=== PATIENT | female | born 1955 | race Caucasian/White ===

== ENCOUNTER 2021-01-10 02:26 | Emergency (ER) | payer MEDICARE, OTHER, SELFPAY ==
[2021-01-10 02:18] VITALS: BP 133/77; PULSE 97; RESP 18; TEMP 37.2; O2SAT 98; BMI 42.0
[2021-01-10 03:16] LABS: Coronavirus 19, PCR Not Detected (NotDetected); Influenza A, PCR Not Detected (NotDetected); Influenza B, PCR Not Detected (NotDetected)
--- NOTE | 2021-01-10 03:16 | XR_ITS ---
PROCEDURE INFORMATION: Exam: XR Pelvis Exam date and time: 01/10/2021 3:16 AM Age: 65 years old Clinical indication: Pelvic pain; Additional info: Fall TECHNIQUE: Imaging protocol: XR pelvis. Views: 1 or 2 view. COMPARISON: CR PELAP PELVIS AP ONLY 01/05/2015 3:35 PM FINDINGS: Bones/joints: Osteopenia, limiting evaluation of the osseous structures. There is a questionable nondisplaced avulsion fracture of the left greater trochanter, with the differential to include artifact due to enthesopathy and overlying skin folds. No dislocation. Minimal degenerative spurring of the bilateral hips. Partially visualized lower lumbar degenerative changes. Soft tissues: Surgical clips in the right inguinal region. Question left hip soft tissue swelling laterally. Vasculature: Atherosclerotic calcifications. Left iliac vascular stents. IMPRESSION: Possible acute nondisplaced avulsion fracture of the left greater trochanter versus artifact. Further evaluation with CT recommended.
[2021-01-10 03:21] LABS: Basophils % 0.2 % (0.1-2.0); Eosinophils % 0.6 % (0.1-12.0); Hematocrit 34.3 % (37.0-47.0); Hemoglobin 9.9 g/dL (12.2-16.2); Lymphocytes # 0.7 K/mm3 (0.7-4.5); Lymphocytes % 9.7 % (10-50); Mean Corpuscular HGB Conc 28.9 g/dL (31.8-35.4); Mean Corpuscular Hemoglobin 24.3 pg (27.0-31.2); Mean Corpuscular Volume 84.1 fl (81-99); Mean Platelet Volume 8.1 fl (7.4-10.4); Monocytes # 0.2 K/mm3 (0.1-1.0); Monocytes % 3.4 % (1.7-9.3); Platelet Count 367 K/mm3 (142-424); Red Blood Count 4.07 M/mm3 (4.20-5.40); Red Cell Distribution Width 16.7 % (11.5-17.5)
[2021-01-10 03:28] LABS: MANUAL DIFFERENTIAL MANUAL DIFFERENTIAL (MANUAL DIFF)
[2021-01-10 03:29] LABS: Alanine Aminotransferase 15 U/L (12-78); Albumin Level 3.3 g/dl (3.5-5.0); Albumin/Globulin Ratio 0.9 (1.1-1.8); Alkaline Phosphatase 157 U/L (38-126); Aspartate Amino Transferase 33 U/L (14-36); Bilirubin,Total 0.4 mg/dl (0.2-1.3); Blood Urea Nitrogen 11 mg/dl (7-17); Calcium 9.8 mg/dl (8.4-10.2); Chloride 87 mmol/L (98-107); Creatinine Clearance Estimated 44 mL/min (50-200); Estimated Glomerular Filt Rate 84 ml/min (>60); GFR (African American) 102 ML/MIN (>60); Globulin 3.7 g/dL (1.3-3.2); Glucose 386 mg/dl (74-100); Lactic Acid 1.1 mmol/L (0.7-2.1); Potassium 4.2 mmoL/L (3.5-5.1); Sodium 132 mmol/L (136-145)
[2021-01-10 03:34] LABS: C-Reactive Protein 206.2 mg/L (0-4)
[2021-01-10 03:37] LABS: Anion Gap 12.2 mEq/L (5-15); Carbon Dioxide 37 mmol/L (22.0-30.0)
[2021-01-10 03:48] LABS: Procalcitonin 0.138 ng/mL (0.0-2.0)
--- NOTE | 2021-01-10 03:55 | HMH.EDSKAF ---
ED Disposition Clinical Impression: Gangrene of left foot Disposition: Home, Self-Care Condition on Discharge: Fair Instructions: DI for Foot Pain Additional Instructions: please call hospice for follow up Referrals: Provider,Referral, [Primary Care Provider] - - Critical Care Critical Care Time: No Attestation: On 01/10/21, the high probability of a clinically significant, sudden or life threatening deterioration of the following system(s) required my full and direct attention, intervention and personal management. The time I documented below is in addition to time spent performing reported procedures but includes the following listed in this critical care notation. Medical Decision Making - Medical Records Medical records reviewed: Yes: I reviewed the patient's medical records. - Roshan Inquiry Pt receiving controlled substance: No Vital Signs: 01/10/21 02:18 Temperature 98.9 F Temperature Source Oral Pulse Rate [Apical] 97 H Respiratory Rate 18 Blood Pressure [Right Arm] 133/77 Blood Pressure Mean [Right Arm] 95 Blood Pressure Source [Right Arm] Automatic Cuff Blood Pressure Position [Right Arm] Sitting 02 Sat by Pulse Oximetry 98 Oxygen Delivery Method Nasal Cannula Oxygen Flow Rate (LPM) 3 - Lab Data Lab results reviewed: Yes: I reviewed the patient's lab results. Lab Results 01/10/21 02:35: WBC 7.0, RBC 4.07 L, Hgb 9.9 L, Hct 34.3 L, MCV 84.1, MCH 24.3 L, MCHC 28.9 L, RDW 16.7, Plt Count 367, MPV 8.1, Neut % (Auto) 86.0 H, Lymph % (Auto) 9.7 L, [place] % (Auto) 3.4, Eos % (Auto) 0.6, Baso % (Auto) 0.2, Neut # (Auto) 6.0, Lymph # (Auto) 0.7, [place] # (Auto) 0.2, Eos # (Auto) 0.0, Baso # (Auto) 0.0 01/10/21 02:35: Sodium 132 L, Potassium 4.2, Chloride 87 L, Carbon Dioxide 37 H, Anion Gap 12.2, BUN 11, Creatinine 0.70, Estimated Creat Clear 44, Estimated GFR 84, Est GFR ( Amer) 102, Glucose 386 H, Calcium 9.8, Total Bilirubin 0.4, AST 33, ALT 15, Alkaline Phosphatase 157 H, C-Reactive Protein 206.2 H, Total Protein 7.0, Albumin 3.3 L, Globulin 3.7 H, Albumin/Globulin Ratio 0.9 L, Procalcitonin 0.138 01/10/21 02:35: SARS-CoV-2 (PCR) Not detected, Influenza A Untype (PCR) Not detected, Influenza Type B (PCR) Not detected 01/10/21 02:35: Lactate 1.1 Result diagrams: 01/10/21 02:35 01/10/21 02:35 Orders (Tests/Meds): ORDERS Category Date Time Status Pelvis XR 1-2 views [XR pelvis 1-2V] Stat Exams 01/10/21 03:16 Taken Complete Blood Count Auto Diff Stat Lab 01/10/21 02:35 Results Erythrocyte Sedimentation Rate Stat Lab 01/10/21 02:35 Results Blood Culture Stat Micro 01/10/21 02:35 Received - Radiology Data #1 Image(s): Pelvis Image Reviewed: Yes I have reviewed radiologist's interpretation Preliminary Findings: No Fracture Seen Medical Decision Narrative: chronic changes lt foot and hospice pt will redress foot and resume hospice care Skin/Abscess/FB HPI - General Chief complaint: Wound/Laceration Stated complaint: laceration on left foot Time Seen by Provider: 01/10/21 02:30 Mode of Arrival: EMS Source of Information: Patient, EMS, Medical Record Limitations: Physical Limitations Description of Symptoms (Recalled from ER Triage Doc. by RN): Patient arrived via ems with c/o left ankle laceration, upon assessment it was ascertained that the patient has had ankle surgery with associated osteomylitis. Wound has not healed since her last surgery two months ago. Patient states that last night she was ambulating from her chair to the bathroom and she bumped her foot on her chair and it began to bleed. States her daughter was unable to get it to stop bleeding so they called ems. - History of Present Illness HPI narrative: hx of chronically infected lt foot and has had surg in nov at - with acute fall tonight with bleeding and has lung cancer and on pain meds and hospice care as pt wishes only comfort care MD complaint: other (open wd lt foot ) Onset (ago): h
[2021-01-10 04:03] LABS: Erythrocyte Sedimentation Rate 102 mm/hr (0-30)
[2021-01-10 04:21] LABS: Hypochromasia 1+; Lymphocytes % 10 % (10-50); Monocytes % 2 % (2-9); Neutrophils % 88 % (42-76); Platelet Estimate Normal; Stomatocytes 1+; Total Cells Counted 100
[2021-01-10 05:44] VITALS: BP 130/74; PULSE 88; RESP 16; TEMP 36.8; O2SAT 99
== END 2021-01-10 05:51 | disposition home or self-care (01) ==
PROVIDERS: Emergency Provider Emergency Medicine
DX: I96 Gangrene, not elsewhere classified (principal); M86.172 Other acute osteomyelitis, left ankle and foot; E11.621 Type 2 diabetes mellitus with foot ulcer; C34.90 Malignant neoplasm of unspecified part of unspecified bronchus or lung; Z20.822 Contact with and (suspected) exposure to COVID-19
CPT/HCPCS: 72170; 80053; 83605; 84145; 85007; 85025; 85651; 86140; 87040; 96375; 99283; C9803; J2405; U0003; U0005

== ENCOUNTER 2021-01-23 20:19 | Inpatient (IN) | payer OTHER, SELFPAY ==
[2021-01-23 20:19] VITALS: BP 124/58; PULSE 79; RESP 21; TEMP 36.4; O2SAT 98; BMI 33.6
--- NOTE | 2021-01-23 20:35 | XR_ITS ---
PROCEDURE INFORMATION: Exam: XR Pelvis Exam date and time: 01/23/2021 8:35 PM Age: 65 years old Clinical indication: Pelvic pain; Additional info: Fall TECHNIQUE: Imaging protocol: XR pelvis. Views: 1 or 2 view. COMPARISON: CR XR PELVIS 1-2V 01/10/2021 3:32 AM FINDINGS: Bones/joints: Degenerative changes of the lumbosacral spine and hips. No acute fracture or dislocation. Soft tissues: Unremarkable. Vasculature: Vascular calcifications. Left iliac stent. IMPRESSION: Chronic changes without acute process.
--- NOTE | 2021-01-23 20:35 | XR_ITS ---
PROCEDURE INFORMATION: Exam: XR Chest Exam date and time: 01/23/2021 8:35 PM Age: 65 years old Clinical indication: Pain; Other: Fall TECHNIQUE: Imaging protocol: XR of the chest. Views: 4 or more views. COMPARISON: [facility] CT CERVICAL SPINE W/O CONT 12/05/2014 8:40 AM FINDINGS: Lungs: Patchy opacity within the medial right upper lobe. Pleural spaces: Unremarkable. No pleural effusion. No pneumothorax. Heart/Mediastinum: Unremarkable. No cardiomegaly. Vasculature: Calcification of the aortic arch. Bones/joints: Status post ACDF. Organs: Post cholecystectomy change. IMPRESSION: Patchy opacity within the medial right upper lobe which is nonspecific but potentially secondary to atelectasis or pneumonia. Follow-up to radiographic clearance is recommended.
--- NOTE | 2021-01-23 21:10 | HMH.EDFALL ---
ED Disposition Clinical Impression: Gangrene of left foot Diabetes Qualifiers: Diabetes mellitus type: type 1 Diabetes mellitus complication status: with other specified complication Qualified Code(s): E10.69 - Type 1 diabetes mellitus with other specified complication Disposition: Admitted As Inpatient Condition on Discharge: Serious Referrals: Provider,Referral, [Primary Care Provider] - - Critical Care Critical Care Time: No Attestation: On 01/23/21, the high probability of a clinically significant, sudden or life threatening deterioration of the following system(s) required my full and direct attention, intervention and personal management. The time I documented below is in addition to time spent performing reported procedures but includes the following listed in this critical care notation. Medical Decision Making - Medical Records Medical records reviewed: Yes: I reviewed the patient's medical records. - Roshan Inquiry Pt receiving controlled substance: No Vital Signs: 01/23/21 20:19 01/23/21 21:31 01/23/21 22:01 Temperature 97.6 F Temperature Source Oral Pulse Rate 82 77 Pulse Rate [Right Radial] 79 Respiratory Rate 21 Blood Pressure 114/53 L 129/42 L Blood Pressure [Right Arm] 124/58 L Blood Pressure Mean 73 Blood Pressure Mean [Right Arm] 80 Blood Pressure Source [Right Arm] Automatic Cuff Blood Pressure Position [Right Arm] Sitting 02 Sat by Pulse Oximetry 98 98 99 Oxygen Delivery Method Nasal Cannula Nasal Cannula Nasal Cannula Oxygen Flow Rate (LPM) 3 3 3 01/23/21 22:35 Temperature Temperature Source Pulse Rate 75 Pulse Rate [Right Radial] Respiratory Rate Blood Pressure 105/58 L Blood Pressure [Right Arm] Blood Pressure Mean Blood Pressure Mean [Right Arm] Blood Pressure Source [Right Arm] Blood Pressure Position [Right Arm] 02 Sat by Pulse Oximetry 98 Oxygen Delivery Method Nasal Cannula Oxygen Flow Rate (LPM) 3 - Lab Data Lab results reviewed: Yes: I reviewed the patient's lab results. Lab Results 01/23/21 22:12: WBC 8.9, RBC 4.20, Hgb 9.9 L, Hct 34.4 L, MCV 82.1, MCH 23.6 L, MCHC 28.7 L, RDW 16.6, Plt Count 452 H, MPV 7.8, Neut % (Auto) 88.6 H, Lymph % (Auto) 8.9 L, [place] % (Auto) 2.0, Eos % (Auto) 0.2, Baso % (Auto) 0.3, Neut # (Auto) 7.9 H, Lymph # (Auto) 0.8, [place] # (Auto) 0.2, Eos # (Auto) 0.0, Baso # (Auto) 0.0 01/23/21 22:12: Sodium 128 L, Potassium 4.0, Chloride 85 L, Carbon Dioxide 38 H, Anion Gap 9.0, BUN 16, Creatinine 0.70, Estimated Creat Clear 76, Estimated GFR 84, Est GFR ( Amer) 102, Glucose 421 H*, Calcium 10.4 H, Total Bilirubin 0.5, AST 45 H, ALT 30, Alkaline Phosphatase 203 H, C-Reactive Protein 263.4 H, Total Protein 7.6, Albumin 3.4 L, Globulin 4.2 H, Albumin/Globulin Ratio 0.8 L, Procalcitonin 0.275 01/23/21 22:12: Lactate 1.0 Result diagrams: 01/23/21 22:12 01/23/21 22:12 Orders (Tests/Meds): ORDERS Category Date Time Status Complete Blood Count Auto Diff Stat Lab 01/23/21 22:12 Results Erythrocyte Sedimentation Rate Stat Lab 01/23/21 22:12 Results Rapid PCR Covid and Flu A/B Stat Lab 01/23/21 22:33 Received Blood Culture Stat Micro 01/23/21 22:12 Received - Radiology Data #1 Image(s): Chest, Pelvis Image Reviewed: Yes I have reviewed radiologist's interpretation Preliminary Findings: Abnormal (see report ) - Physician Consults Physician Consulted: iona Reason -: Admission Medical Decision Narrative: pt desires lt lower leg amputation sec to pain and infection - is hospice for her lung cancer - discussed with hospice Fall HPI - General Chief Complaint: Fall Stated Complaint: fall Time Seen by Provider: 01/23/21 20:45 Mode of Arrival: EMS Source of Information: Patient, EMS, Medical Record Limitations: No Limitations Description of Symptoms (Recalled from ER Triage Doc. by RN): Pt reports falling at home trying to get back to bed. She denies any injuries. She deneis LOC. He
[2021-01-23 21:31] VITALS: BP 114/53; PULSE 82; O2SAT 98
--- NOTE | 2021-01-23 21:31 | PC.NURSE ---
THis RN spoke with KANDY Bonner about what pt's plan was in regards to left foot. She says they were looking to get her into a usp and have her foot amputated but that would require her to be dropped from Hospice care. MD updated at this time.
[2021-01-23 22:01] VITALS: BP 129/42; PULSE 77; O2SAT 99
[2021-01-23 22:35] VITALS: BP 105/58; PULSE 75; O2SAT 98
[2021-01-23 22:38] LABS: Alanine Aminotransferase 30 U/L (12-78); Albumin Level 3.4 g/dl (3.5-5.0); Albumin/Globulin Ratio 0.8 (1.1-1.8); Alkaline Phosphatase 203 U/L (38-126); Aspartate Amino Transferase 45 U/L (14-36); Bilirubin,Total 0.5 mg/dl (0.2-1.3); Blood Urea Nitrogen 16 mg/dl (7-17); Calcium 10.4 mg/dl (8.4-10.2); Carbon Dioxide 38 mmol/L (22.0-30.0); Chloride 85 mmol/L (98-107); Creatinine Clearance Estimated 76 mL/min (50-200); Estimated Glomerular Filt Rate 84 ml/min (>60); GFR (African American) 102 ML/MIN (>60); Globulin 4.2 g/dL (1.3-3.2); Sodium 128 mmol/L (136-145); Total Protein,Serum 7.6 g/dl (6.3-8.2)
[2021-01-23 22:44] LABS: C-Reactive Protein 263.4 mg/L (0-4)
[2021-01-23 22:45] LABS: Glucose 421 mg/dl (74-100)
[2021-01-23 22:47] LABS: Coronavirus 19, PCR Not Detected (NotDetected); Influenza A, PCR Not Detected (NotDetected); Influenza B, PCR Not Detected (NotDetected)
[2021-01-23 22:48] LABS: Basophils % 0.3 % (0.1-2.0); Eosinophils % 0.2 % (0.1-12.0); Hematocrit 34.4 % (37.0-47.0); Hemoglobin 9.9 g/dL (12.2-16.2); Lymphocytes # 0.8 K/mm3 (0.7-4.5); Lymphocytes % 8.9 % (10-50); Mean Corpuscular HGB Conc 28.7 g/dL (31.8-35.4); Mean Corpuscular Hemoglobin 23.6 pg (27.0-31.2); Mean Corpuscular Volume 82.1 fl (81-99); Mean Platelet Volume 7.8 fl (7.4-10.4); Monocytes # 0.2 K/mm3 (0.1-1.0); Neutrophils # 7.9 K/mm3 (1.8-7.8); Neutrophils % 88.6 % (37.0-80.0); Platelet Count 452 K/mm3 (142-424); Red Cell Distribution Width 16.6 % (11.5-17.5); White Blood Count 8.9 K/mm3 (4.8-10.8)
[2021-01-23 22:57] LABS: Procalcitonin 0.275 ng/mL (0.0-2.0)
[2021-01-23 22:59] LABS: MANUAL DIFFERENTIAL MANUAL DIFFERENTIAL (MANUAL DIFF)
[2021-01-23 23:36] LABS: Erythrocyte Sedimentation Rate 40 mm/hr (0-30)
[2021-01-23 23:37] VITALS: BMI 33.5; BMI 35.6
--- NOTE | 2021-01-23 23:48 | PC.NURSE ---
pt arrived to floor at this time
[2021-01-23 23:51] LABS: Lymphocytes % 10 % (10-50); Monocytes % 2 % (2-9); Neutrophils % 88 % (42-76); Platelet Estimate Normal; Stomatocytes 1+; Total Cells Counted 100
[2021-01-23 23:54] VITALS: BP 119/57; PULSE 71; RESP 14; TEMP 37.1; O2SAT 98
[2021-01-24] VITALS (7 sets, daily range): BP systolic 111–132; BP diastolic 49–90; PULSE 60–88; RESP 17–21; TEMP 36.4–36.7; O2SAT 94–99; BMI 33.5
--- NOTE | 2021-01-24 00:50 | PC.WOUNDNOTE ---
medial left necrotic foot with multiple unstageable pressure ulcers and dti's, large pressure ulcer starting above ankle and extending down into tissue has exposed bone necrotic left heel with multiple lacerations and possible dti's around picture above is necrotic and purple toes of left foot; pic below is another view of anterior and medial left foot, right leg has 2 large scars stage II with purple periwound coccyx pic above is lateral side of left foot with almost complete necrosis and large pressure ulcer with exposed tissues
[2021-01-24 05:26] LABS: POC Glucose,Bedside 379 (70-110)
--- NOTE | 2021-01-24 06:09 | XR_ITS ---
PROCEDURE: XR FOOT LT 1V XR R ankle left two-view CLINICAL INDICATION: gangrene COMPARISON: CR XR ANKLE LT 2V from 01/24/2021 FINDINGS: Limited AP and lateral views are obtained. There are no previous studies available for comparison. Multiple lucencies are present in the distal and mid aspect of the tibia and in the distal aspect of the fibula consistent with prior screw hose. Diffuse soft tissue gas is noted at the ankle joint, around the calcaneus, and along the plantar surface of the foot consistent with gas gangrene. Bony destruction noted involving the distal aspect of the tibia centrally and laterally consistent with acute osteomyelitis. There is some fragmentation with collapse along the talar dome with bony destruction at this area. Decreased attenuation is present along the proximal surface of the calcaneus posteriorly. There is generalized soft tissue swelling. 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
[2021-01-24 06:54] LABS: Lymphocytes # 1.1 K/mm3 (0.7-4.5); Lymphocytes % 11.7 % (10-50); Monocytes # 0.3 K/mm3 (0.1-1.0)
[2021-01-24 07:02] LABS: Basophils % 0.2 % (0.1-2.0); Eosinophils % 0.2 % (0.1-12.0); Hematocrit 29.7 % (37.0-47.0); Mean Corpuscular Hemoglobin 23.9 pg (27.0-31.2); Mean Corpuscular Volume 82.3 fl (81-99); Monocytes % 2.8 % (1.7-9.3); Neutrophils # 8.1 K/mm3 (1.8-7.8); Neutrophils % 85.1 % (37.0-80.0); Platelet Count 365 K/mm3 (142-424); Red Blood Count 3.61 M/mm3 (4.20-5.40); Red Cell Distribution Width 16.7 % (11.5-17.5); White Blood Count 9.5 K/mm3 (4.8-10.8)
[2021-01-24 07:03] LABS: Anion Gap 8.9 mEq/L (5-15); Blood Urea Nitrogen 15 mg/dl (7-17); Calcium 9.8 mg/dl (8.4-10.2); Carbon Dioxide 37 mmol/L (22.0-30.0); Chloride 88 mmol/L (98-107); Creatinine Clearance Estimated 76 mL/min (50-200); Estimated Glomerular Filt Rate 100 ml/min (>60); GFR (African American) 121 ML/MIN (>60); Glucose 344 mg/dl (74-100); Hemoglobin 8.6 g/dL (12.2-16.2); Potassium 3.9 mmoL/L (3.5-5.1); Sodium 130 mmol/L (136-145)
--- NOTE | 2021-01-24 07:40 | HMH.PHAVTE ---
[facility] Pharmacy VTE Monitoring - Patient Demographics Admission date: 01/24/21 Report Date: 01/24/21 Time: 07:40 Allergies/Adverse Reactions: Patient Allergies adhesive Allergy (Unknown, Verified 01/23/21 23:31) I-RASH codeine Allergy (Unknown, Verified 01/23/21 23:31) NA-NAUSEA hydrocodone Allergy (Unknown, Verified 01/23/21 23:31) iodine Allergy (Unknown, Verified 01/23/21 23:31) I-RASH isosorbide Allergy (Unknown, Verified 01/23/21 23:31) CONFUSION Height: 1.6 m Weight: 86 kg Patient Problems: Current Active Problems Gangrene of left foot (Acute) Diabetes (Acute) - VTE Risk Labs: VTE Related Lab Results Hgb 8.6 g/dL (12.2-16.2) L D 01/24/21 05:15 Hct 29.7 % (37.0-47.0) L 01/24/21 05:15 Plt Count 365 K/mm3 (142-424) 01/24/21 05:15 BUN 15 mg/dl (7-17) 01/24/21 05:15 Creatinine 0.60 mg/dl (0.52-1.04) 01/24/21 05:15 Estimated Creat Clear 76 mL/min (50-200) 01/24/21 05:15 Clinical Trial Participant: No - Prophylaxis VTE Prophylaxis Ordered?: Yes Types of VTE Prophylaxis: TEDS Knee High
--- NOTE | 2021-01-24 08:45 | HMH.HP ---
*Admission Date: 01/24/21 *Chief complaint: Left foot pain/gangrene *History of present illness: 65-year-old white female who apparently is on hospice care for lung cancer, and is in palliative care mode and maintains a DNR status. She is really unable to provide much of the medical history and does not have a primary care physician identified. Apparently she has been diagnosed with a gangrene of her foot over the past weeks but has avoided surgery/declined surgery because she has been on hospice care with her lung cancer. However, the pain in the left foot has become intolerable, and she came to the emergency department last night wishing to have treatment/amputation done. This morning she reports that she has intolerable pain and I want my foot cut off as soon as possible. [facility] History I have reviewed the patient's past medical history: Yes Medical History: Reports:: Cancer, Chronic Obstructive Pulmonary Disease (COPD), Peripheral Artery Disease *Have you ever received a pneumonia vaccine?: No *Have you received a flu vaccine this season?: No Comment:: Significant record deficit. Patient does not know her medical history - *Social History Smoking Status: Current every day smoker Tobacco Type: cigarettes # Packs/Day (cigarettes): 1 Alcohol Intake: never Substance Use Type: denies use *Occupational Status:: retired *Travel in the last 8 weeks: None Family Hx:: No significant family history Review of Systems - Review of Systems Review of systems:: pertinent systems reviewed and negative unless documented below - *Neurologic Denies localized weakness Meds Home Medications Medication Instructions Recorded Confirmed Type Doxepin HCl [Sinequan 10mg capsule] 10 mg PO HS 01/23/21 01/23/21 History Doxycycline Hyclate 100 mg PO DAILY 01/23/21 01/23/21 History Gabapentin [Neurontin 800mg Tab] 800 mg PO TID 01/23/21 01/23/21 History Insulin Glargine,Hum.rec.anlog 50 units SQ AC 01/23/21 01/23/21 History [Lantus Solostar 100 Units/mL 3mL flexpen] Insulin Lispro [Humalog Kwikpen 10 unit SQ HS 01/23/21 01/23/21 History U-100] Losartan Potassium [Cozaar 50mg 50 mg PO DAILY 01/23/21 01/23/21 History Tablets] Magnesium Oxide [Mag-Oxide] 400 mg PO BID 01/23/21 01/23/21 History Melatonin 10 mg PO HS 01/23/21 01/23/21 History Metoprolol Succinate [Metoprolol 100 mg PO DAILY 01/23/21 01/23/21 History Succinate 100mg Tablet*] Morphine Sulfate [Morphine Sulfate 15 mg PO TID 01/23/21 01/23/21 History ER 15mg Tab] Oxycodone HCl 15 mg PO Q4H PRN 01/23/21 01/23/21 History Pantoprazole Sodium [Protonix 40mg 40 mg PO DAILY 01/23/21 01/23/21 History tablet] Prochlorperazine Maleate 10 mg PO Q6H PRN 01/23/21 01/23/21 History [Compazine 10mg tablet] Promethazine HCl [Phenergan 12.5mg 12.5 mg PO Q8H PRN 01/23/21 01/23/21 History tablet] Ropinirole HCl 1 mg PO HS 01/23/21 01/23/21 History Sennosides [Senna] 17.2 mg PO DAILY 01/23/21 01/23/21 History Trazodone HCl [Desyrel 50mg tablet] 50 mg PO HS 01/23/21 01/23/21 History fentaNYL [Fentanyl] 25 mcg TD Q72H 01/23/21 01/23/21 History Allergies Allergy/AdvReac Type Severity Reaction Status Date / Time adhesive Allergy Unknown I-RASH Verified 01/23/21 23:31 codeine Allergy Unknown NA-NAUSEA Verified 01/23/21 23:31 hydrocodone Allergy Unknown Verified 01/23/21 23:31 iodine Allergy Unknown I-RASH Verified 01/23/21 23:31 isosorbide Allergy Unknown CONFUSION Verified 01/23/21 23:31 Exam Vital signs and Labs for Last 24 Hours: Temp Pulse Resp BP Pulse Ox 97.8 F 79 19 126/90 97 01/24/21 07:39 01/24/21 07:39 01/24/21 07:39 01/24/21 07:39 01/24/21 07:39 Laboratory Results - last 24 hr 01/23/21 22:12: WBC 8.9, RBC 4.20, Hgb 9.9 L, Hct 34.4 L, MCV 82.1, MCH 23.6 L, MCHC 28.7 L, RDW 16.6, Plt Count 452 H, MPV 7.8, Neut % (Auto) 88.6 H, Lymph % (Auto) 8.9 L, [place] % (Auto) 2.0, Eos % (Auto) 0.2, Baso % (Auto) 0.3, Neut # (Auto) 7.9 H,
--- NOTE | 2021-01-24 10:01 | SW/DCPLANNER ---
Addendum entered by Ciera Lovell 01/29/21 14:09: PATIENT HAS BEEN ACCEPTED TO [facility] AND IF CONTINUES TO MEDICALLY STABLE SHE WILL DISCHARGE THERE IN THE AM.. SHE WILL GO UNDER HER MEDICAID BENEFIT AND HAVE HOSPICE THERE... PATIENT IS IN AGREEMENT OF THE PLAN AND HER ULTIMATE GOAL IS TO BE ABLE TO TRANSFER TO [facility] TO BE THERE WITH HER MOTHER... Addendum entered by Ciera Lovell 01/24/21 14:53: PATIENT IS GOING TO SURGERY TODAY FOR AN AMPUTATION OF HER FOOT.. THEY ARE GOING TO REVOKE HER HOSPICE AND SHE WILL BE PICKED UP IF SHE CHOOSES TO BE WHEN SHE GOES TO THE JAIL.. HOSPICE HAS MADE CONTACT WITH [facility] FOR WHEN PATIENT IS MEDICALLY READY FOR DISCHARGE.. WILL FOLLOW UP WITH MD WHEN PATIENT IS MEDICALLY READY TO MOVE TO A LOWER LEVEL OF CARE.... Original Note: MADE CONTACT WITH HOSPICE THIS MORNING REGARDING WHETHER HER STAY HERE AT [facility] WOULD BE RELATED... PATIENT SAW DR NIX, DATA TYPIST AND SHE HAS RECOMMENDED HER TO ORTHO, DR GARCIA. MS BLACKWOOD IS A HOSPICE PATIENT AND I SPOKE WITH HOSPICE AND IF PATIENT ELECTS TO HAVE SURGERY HER HOSPICE WILL BE REVOKED AND SHE WILL BE UNDER HER COMMERICAL INSURANCE.. IF NEEDS PLACEMENT SHE CAN EITHER BE SKILLED OR IF SHE ELECTS TO STAY WITH HOSPICE THEY WOULD PICK HER UP BUT SHE WOULD BE RESPONSIBLE FOR ROOM AND BOARD.. WAITING TO HEAR THE PLAN..
--- NOTE | 2021-01-24 10:10 | HMH.ORTHOCON ---
*Admission Date: 01/24/21 <Guillermina Allen - 01/24/21 11:02> *Reason for consult:: Left gangrene infected foot <Guillermina Allen - 01/24/21 11:02> *History of present illness: Patient was sitting up in bed this am upon entering the room, Radiology was at the bedside trying to obtain xrays and the patient didn't want to allow us to touch her without in her words getting a shot of whiskey and pain medication . We was able to give a one time dose of her scheduled Dilaudid 1mg IV at this time. The patient did allow us to take off the current dressing and was was able to reapply new betadine soaked 4x4, dry 4x4, kerlix dressing. The patient was still presenting with alot of pain and was saying to just cut it off . The site was very malodorus and did present showing exposed bone to her medial ankle/Tibia. Gangrenous tissue noted, drainage from the site was cultured. The entire left foot is edmatous, ruburish/purple in color. Multiple sites of broken down tissue on foot, toes, heels and Lateral foot and ankle. Left foot toes: hallux tip and medial site is black hard gangrene with some peeling and sloughing of the skin, toes 4th and 5th are the same with black gangrene, peeling and sloughing of the skin. Dorsal mid-foot proximal to ankle is dusky in color and lateral foot and ankle is open exposed tissue necrotic and sloughing of the skin. The Patient's x-ray findings are compatible with acute osteomyelitis at the ankle joint and calcaneus with gas gangrene we will be putting in an orthopedic consult for the patient this am. <Guillermina Allen - 01/24/21 11:02> [facility] History I have reviewed the patient's past medical history: Yes <Guillermina Allen - 01/24/21 13:53> Medical History: Reports:: Cancer, Chronic Obstructive Pulmonary Disease (COPD), Peripheral Artery Disease <Guillermina Allen - 01/24/21 11:02> *Have you ever received a pneumonia vaccine?: No <Guillermina Allen - 01/24/21 11:02> *Have you received a flu vaccine this season?: No <Guillermina Allen 01/24/21 11:02> - *Social History Smoking Status: Current every day smoker <Guillermina Allen 01/24/21 11:02> Tobacco Type: cigarettes <Guillermina Allen 01/24/21 11:02> # Packs/Day (cigarettes): 1 <Guillermina Allen 01/24/21 11:02> Alcohol Intake: never <Guillermina Allen 01/24/21 11:02> Substance Use Type: denies use <Guillermina Allen 01/24/21 11:02> *Occupational Status:: retired <Guillermina Allen 01/24/21 11:02> *Travel in the last 8 weeks: None <Guillermina Allen 01/24/21 11:02> Family Hx:: No significant family history <Guillermina Allen 01/24/21 11:02> Review of Systems - Constitutional Reports weakness <Guillermina Allen 01/24/21 13:53> - ENT Reports abnormal hearing (little hard of hearing ) <Guillermina Allen 01/24/21 13:53> - *Cardiovascular Denies chest pain <Guillermina Allen 01/24/21 13:53> - *Respiratory Denies cough, Denies shortness of breath <Guillermina Allen 01/24/21 13:53> - *Gastrointestinal Denies abdominal pain <Guillermina Allen 01/24/21 13:53> - *Genitourinary Reports other (No known Urinary problems ) <Guillermina Allen 01/24/21 13:53> - *Musculoskeletal Reports abnormal walking <Guillermina Allen 01/24/21 13:53> - Integumentary/Breasts Reports nail changes, Reports skin ulcer, Reports wounds (Ulcer to L medial/lateral ankle, heel, hallux, 4th 5th toes, lateral foot ) <Guillermina Allen 01/24/21 13:53> - *Neurologic Denies localized weakness <Guillermina Allen - 01/24/21 11:02> - Psychiatric Reports irritability, Denies confusion <Guillermina Allen - 01/24/21 13:53> Meds Home Medications Medication Instructions Recorded Confirmed Type Doxepin HCl [Sinequan 10mg capsule] 10 mg PO HS 01/23/21 01/23/21 History Doxycycline Hyclate 100 mg PO DAILY 01/23/21 01/23/21 History Gabapentin [Neurontin 800mg Tab] 800 mg PO TID 01/23/21 01/23/21 History Insulin Glargine,Hum.rec.anlog 50 units SQ AC
--- NOTE | 2021-01-24 11:50 | XR_ITS ---
PROCEDURE: XR TIBIA FIBULA LT 2V CLINICAL INDICATION: infection to ankle COMPARISON: CR XR ANKLE LT 2V from 01/24/2021 FINDINGS: The the proximal aspect of the tib fib is unremarkable. The mid distal aspect demonstrates postsurgical change with multiple small vacant screw hose. There is osteomyelitis of the distal tibia with gas in the ankle joint as described in the ankle report. Bony destructive changes noted of the distal tibia, talar dome, and the proximal calcaneus. May also be some bony destruction of the distal aspect of the fibula. IMPRESSION: Osteomyelitis with gas gangrene at the ankle with postsurgical changes of the tibia and fibula Dictated by: Calin Garcia MD 01/24/2021 13:41 Calin Garcia MD in [place] 01/24/2021 13:41
--- NOTE | 2021-01-24 15:45 | HMH.PTWOUND ---
Rehab Inpt Wound Evaluation Rehab IP Wound Evaluation Start: 01/24/21 14:44 Freq: ONCE Status: Active Protocol: Document 01/24/21 15:36 [email or web address] (Rec: 01/24/21 15:45 [email or web address] [id number]) Rehab PT Wound Assessment Patient Status Premedicated Prior to Dressing Change No Subjective Subjective Pt admitted to [facility] thru ED due to gas gangrene necrosis of L foot. Pt also has pressure ulcer on R buttocks. L foot infxn is being followed and consulted by podiatry and orthopedics. Wound Sacrum Wound Type Pressure Ulcer Is This a Chronic Wound Yes Wound Staging Stage II Query Text:Stage I - Unbroken, red skin, no blanching. Stage II - Skin broken, superficial skin loss involving epidermis alone or also dermis. Partial loss of skin layers. Stage III - Pressure area involves epidermis, dermis and subcutaneous tissue, full thickness skin loss. Stage IV - Pressure area involves epidermis, subcutaneous tissue, bone and other supportive tissue. Full thickness skin loss with extensive destruction of underlying tissue and structures. Wound Length (cm) 2 Wound Width (cm) 1 Wound Bed Appearance White Percentage Granulated (%) 100 Wound Margins Description Well Defined Surrounding Tissue Appearance [place] Wound Drainage Description None Drainage Amount None Drainage Odor No Odor Dressing Status Open to Air Primary Dressing Absorbant Pad Comment optifoam Wound Debridement Amount of Tissue None Removed Dressing Change Patient Tolerance Tolerated Well Plan/Recommendation Comment Application of padded dressing done w/ nsg in room. No debridement or special care needed. Nsg to follow pt for wound care dressing changes PRN and pressure relief Q2. Wound care will be available for consult if necessary. Eval Complexity Eval Charge Codes 22517 - Low Complexity G-codes PT Current Status Other PT/OT Status PT Current Status Modifier CN-At least 100% impaired, limited or restricted PT Goal Status Other PT/OT Status
--- NOTE | 2021-01-24 17:28 | HMH.ORTHOCON ---
*Admission Date: 01/24/21 <Katelyn Thomas - 01/24/21 17:29> *Reason for consult:: Left foot infection/gangrene <Katelyn Thomas 01/24/21 17:36> *History of present illness: Patient is a 65-year-old female with a past medical history significant for lung cancer, on hospice care, who is admitted to acute inpatient services from the [facility]. This afternoon, the patient is confused and unable to provide much medical history. History was obtained from emergency department documentation as well as hospice nurses who are at the bedside, and the patient's daughter via phone call. Per hospice caregivers, the patient has had an ongoing left foot wound/cellulitis for approximately 1 year. She has previously been managed by the orthopedic services at and most recently had surgery performed on the left foot/ankle there in November 2020. Per hospice caregivers, the patient was previously advised to undergo a left BKA but did not wish for amputation at that time. She presented to the [facility] ER yesterday evening via EMS after sustaining a fall at home. Her daughter reports that the patient was transferring from the bed to a bedside commode and fell at that time. The patient and her daughter now report that they wish for a left BKA, as the patient states her pain has become unbearable. Her past medical history is significant for lung cancer and diabetes. <Katelyn Thomas - 01/24/21 17:38> [facility] History I have reviewed the patient's past medical history: Yes <Katelyn Thomas 01/24/21 17:37> Medical History: Reports:: Cancer, Chronic Obstructive Pulmonary Disease (COPD), Peripheral Artery Disease <Katelyn Thomas 01/24/21 17:29> *Have you ever received a pneumonia vaccine?: No <Katelyn Thomas 01/24/21 17:29> *Have you received a flu vaccine this season?: No <Katelyn Thomas 01/24/21 17:29> - *Social History Smoking Status: Current every day smoker <Katelyn Thomas 01/24/21 17:29> Tobacco Type: cigarettes <Katelyn Thomas 01/24/21 17:29> # Packs/Day (cigarettes): 1 <Katelyn Thomas - 01/24/21 17:29> Alcohol Intake: never <Katelyn Thomas 01/24/21 17:29> Substance Use Type: denies use <Katelyn Thomas 01/24/21 17:29> *Occupational Status:: retired <Katelyn Thomas 01/24/21 17:29> *Travel in the last 8 weeks: None <Katelyn Thomas 01/24/21 17:29> Family Hx:: No significant family history <Katelyn Thomas 01/24/21 17:29> Review of Systems - Review of Systems Review of systems:: unable to obtain <Katelyn Thomas 01/24/21 17:38> - *Neurologic Reports abnormal walking, Reports abnormal hearing (little hard of hearing ), Reports weakness, Denies confusion, Denies localized weakness <Katelyn Thomas 01/24/21 17:29> Meds Home Medications Medication Instructions Recorded Confirmed Type Doxepin HCl [Sinequan 10mg capsule] 10 mg PO 01/23/21 01/23/21 History Doxycycline Hyclate 100 mg PO DAILY 01/23/21 01/23/21 History Gabapentin [Neurontin 800mg Tab] 800 mg PO TID 01/23/21 01/23/21 History Insulin Glargine,Hum.rec.anlog 50 units SQ AC 01/23/21 01/23/21 History [Lantus Solostar 100 Units/mL 3mL flexpen] Insulin Lispro [Humalog Kwikpen 10 unit SQ 01/23/21 01/23/21 History U-100] Losartan Potassium [Cozaar 50mg 50 mg PO DAILY 01/23/21 01/23/21 History Tablets] Magnesium Oxide [Mag-Oxide] 400 mg PO BID 01/23/21 01/23/21 History Melatonin 10 mg PO 01/23/21 01/23/21 History Metoprolol Succinate [Metoprolol 100 mg PO DAILY 01/23/21 01/23/21 History Succinate 100mg Tablet*] Morphine Sulfate [Morphine Sulfate 15 mg PO TID 01/23/21 01/23/21 History ER 15mg Tab] Oxycodone HCl 15 mg PO Q4H PRN 01/23/21 01/23/21 History Pantoprazole Sodium [Protonix 40mg 40 mg PO DAILY 01/23/21 01/23/21 History tablet] Prochlorperazine Maleate 10 mg PO Q6H PRN 01/23/21 01/23/21 History [Compazine 10mg tablet] Promethazine HCl [Phenergan 12.
[2021-01-24 18:35] LABS: Microscopic,Cath URINE MICROSCOPIC (MICROSCOPIC)
[2021-01-24 19:48] LABS: Appearance,Urine/Cath CLEAR (Clear); Blood, Urine/Cath Negative (Negative); Color,Urine/Cath YELLOW (Yellow); Glucose,Urine/Cath (UA) Negative (Negative); Ketones,Urine/Cath 1+ (Negative); Leukocyte Esterase,Cath Negative (Negative); Nitrate,Cath POSITIVE (Negative); PH,Urine/Cath 8.5 (5.0-8.5); Protein,Urine/Cath TRACE (Negative); Urobilinogen,Cath 0.2 EU/dl (0.2)
[2021-01-24 19:51] LABS: Bilirubin,Cath 2+ (Negative)
[2021-01-24 20:07] LABS: Bacteria,Urine/Cath TRACE /lpf
[2021-01-25] VITALS (17 sets, daily range): BP systolic 117–152; BP diastolic 50–100; PULSE 59–98; RESP 16–20; TEMP 36.1–43; O2SAT 94–100; BMI 33.5
[2021-01-25 05:31] LABS: POC Glucose,Bedside 334 (70-110)
[2021-01-25 05:31] LABS: POC Glucose,Bedside 279 (70-110)
[2021-01-25 05:31] LABS: POC Glucose,Bedside 262 (70-110)
--- NOTE | 2021-01-25 06:28 | HMH.ACPN2 ---
Internal Medicine - PN: Subj *Date: 01/25/21 *Time: 08:50 Interval history: Continues to have pain overnight however better controlled. N.p.o. this morning for anticipated left lower extremity BKA. Orthopedics consulted for palliative amputation to assist with pain control given gas gangrene of left foot. Remains afebrile and hemodynamically stable. Pleasant on exam this morning. Denies nausea, chest pain, shortness of breath beyond baseline Exam Vital signs and Labs for Last 24 Hours: Temp Pulse Resp BP Pulse Ox 98.4 F 85 19 117/50 L 96 01/25/21 04:13 01/25/21 04:13 01/25/21 04:13 01/25/21 04:13 01/25/21 04:13 Laboratory Results - last 24 hr 01/24/21 05:15: WBC 9.5, RBC 3.61 L, Hgb 8.6 L D, Hct 29.7 L, MCV 82.3, MCH 23.9 L, MCHC 29.0 L, RDW 16.7, Plt Count 365, MPV 8.0, Neut % (Auto) 85.1 H, Lymph % (Auto) 11.7, [place] % (Auto) 2.8, Eos % (Auto) 0.2, Baso % (Auto) 0.2, Neut # (Auto) 8.1 H, Lymph # (Auto) 1.1, [place] # (Auto) 0.3, Eos # (Auto) 0.0, Baso # (Auto) 0.0 01/24/21 05:15: Sodium 130 L, Potassium 3.9, Chloride 88 L, Carbon Dioxide 37 H, Anion Gap 8.9, BUN 15, Creatinine 0.60, Estimated Creat Clear 76, Estimated GFR 100, Est GFR ( Amer) 121, Glucose 344 H, Calcium 9.8 01/24/21 12:11: POC Glucose 334 H* 01/24/21 16:32: POC Glucose 262 H 01/24/21 17:03: Urine Color Yellow, Urine Appearance Clear, Urine pH 8.5, Ur Specific [place] 1.020, Urine Protein Trace, Urine Glucose (UA) Negative, Urine Ketones 1+, Urine Blood Negative, Urine Nitrate Positive, Urine Bilirubin 2+ A, Urine Urobilinogen 0.2, Ur Leukocyte Esterase Negative, Urine RBC None, Urine WBC 3-5, Ur Squamous Epith Cells 3-5, Urine Bacteria Trace 01/25/21 05:14: POC Glucose 279 H I & O for Last 24 hours: Intake & Output 01/22/21 01/23/21 01/24/21 01/25/21 23:59 23:59 23:59 23:59 Intake Total 540 / 540 Output Total 0 / 450 450 / 450 Balance 540 / 90 -450 / -450 Weight 86 kg 86 kg 86 kg Microbiology Reports for the Last 24 Hours: Microbiology 01/23/21 22:12 Blood Blood Culture - Preliminary 01/23/21 22:12 Blood Blood Culture - Preliminary 01/24/21 08:22 Leg,Left Gram Stain - Final Narrative: - Constitutional moderate distress, obese - *Routine HEENT Exam Head: Present: normocephalic Eye: Present: EOMI, PERRL ENT: Present: mucous membranes moist - *Routine Neck Exam Present: supple. Absent: lymphadenopathy - *Routine Respiratory Exam Present: prolonged expiratory phase - *Routine Cardiovascular Exam Present: RRR - *Routine Abdominal Exam Present: soft, normoactive bowel sounds. Absent: tenderness - *Routine Extremities Exam No cyanosis, clubbing, edema; Left foot and ankle afflicted with severe, necrotic gangrene that involves the ankle, distal toes and into the jama. foul-smelling, intensely painful. - *Routine Skin Exam Present: warm. Absent: rash - *Routine Neurological Exam Present: alert, oriented X3 Assessment and Plan (1) Lung cancer Status: Acute Category: Medical Code(s): C34.90 - Malignant neoplasm of unspecified part of unspecified bronchus or lung (2) Gangrene of left foot Status: Acute Category: Medical Code(s): I96 - Gangrene, not elsewhere classified (3) Gangrene of toe of left foot Start date: 01/24/21 Problem details: gangrene to left hallux, 4th and 5th toes Status: Acute Category: Medical Code(s): I96 - Gangrene, not elsewhere classified (4) Edema of left foot Start date: 01/24/21 Status: Acute Category: Medical Code(s): R60.0 - Localized edema (5) Gas gangrene Start date: 01/24/21 Status: Acute Category: Medical Code(s): A48.0 - Gas gangrene (6) Acute osteomyelitis of left ankle Start date: 01/24/21 Status: Acute Category: Medical Code(s): M86.172 - Other acute osteomyelitis, left ankle and foot (7) Acute osteomyelitis of left calcaneus Start date: 01/24/21 Status: Acute Category: Medic
[2021-01-25 06:45] LABS: Chloride 94 mmol/L (98-107); Sodium 134 mmol/L (136-145)
[2021-01-25 06:47] LABS: Alanine Aminotransferase 29 U/L (12-78); Blood Urea Nitrogen 12 mg/dl (7-17); Creatinine Clearance Estimated 76 mL/min (50-200); Estimated Glomerular Filt Rate 100 ml/min (>60); GFR (African American) 121 ML/MIN (>60)
[2021-01-25 06:48] LABS: Albumin Level 2.8 g/dl (3.5-5.0); Albumin/Globulin Ratio 0.8 (1.1-1.8); Alkaline Phosphatase 168 U/L (38-126); Aspartate Amino Transferase 53 U/L (14-36); Bilirubin,Total 0.3 mg/dl (0.2-1.3); Calcium 9.6 mg/dl (8.4-10.2); Carbon Dioxide 30 mmol/L (22.0-30.0); Globulin 3.7 g/dL (1.3-3.2); Glucose 258 mg/dl (74-100); Magnesium 1.4 mg/dl (1.6-2.3); Total Protein,Serum 6.5 g/dl (6.3-8.2)
[2021-01-25 07:49] LABS: Basophils % 0.1 % (0.1-2.0); Eosinophils % 0.1 % (0.1-12.0); Hematocrit 28.2 % (37.0-47.0); Hemoglobin 8.3 g/dL (12.2-16.2); Mean Corpuscular HGB Conc 29.4 g/dL (31.8-35.4); Mean Corpuscular Volume 81.7 fl (81-99); Mean Platelet Volume 7.7 fl (7.4-10.4); Monocytes # 0.3 K/mm3 (0.1-1.0); Monocytes % 3.6 % (1.7-9.3); Neutrophils % 85.2 % (37.0-80.0); Platelet Count 324 K/mm3 (142-424); Red Blood Count 3.45 M/mm3 (4.20-5.40); Red Cell Distribution Width 16.5 % (11.5-17.5); White Blood Count 9.4 K/mm3 (4.8-10.8)
[2021-01-25 07:56] LABS: MANUAL DIFFERENTIAL MANUAL DIFFERENTIAL (MANUAL DIFF)
--- NOTE | 2021-01-25 09:04 | HMH.ORTHPN ---
Subjective Date: 01/25/21 <Katelyn Thomas - 01/25/21 09:05> Time: 08:35 <Katelyn Thomas - 01/25/21 09:05> Principal diagnosis: Left foot infection/gangrene <Katelyn Thomas - 01/25/21 09:10> Interval history: Patient is a 65-year-old female with a past medical history significant for lung cancer, on hospice care, who is admitted to acute inpatient services from the [facility] ER. This morning the patient is more alert, able to tell me her name, where she is, and why she is here. She states that she wishes for a left BKA as her foot is causing her unbearable pain. The patient has had an ongoing left foot wound/cellulitis for approximately 1 year. She has previously been managed by the orthopedic services at and most recently had surgery performed on the left foot/ankle there in November 2020. She was previously advised to undergo a left BKA but did not wish for amputation at that time. The patient and her daughter now report that they wish to proceed with left BKA. Her past medical history is significant for lung cancer and diabetes. This morning she reports some mild nausea but denies vomiting, shortness of breath, chest pain, palpitations, fever, chills, rigors, or any other symptoms or concerns at this time. She states she has not had anything to eat or drink since yesterday evening. <Katelyn Thomas - 01/25/21 09:10> PN: Obj Ex Vital signs: Temp Pulse Resp BP Pulse Ox 98.7 F 98 H 20 132/73 94 L 01/25/21 08:00 01/25/21 08:00 01/25/21 08:00 01/25/21 08:00 01/25/21 08:00 <NghiaJese Yamil - 01/25/21 11:17> Temp Pulse Resp BP Pulse Ox 98.4 F 85 19 117/50 L 96 01/25/21 04:13 01/25/21 04:13 01/25/21 04:13 01/25/21 04:13 01/25/21 04:13 <Katelyn Thomas - 01/25/21 09:05> - Constitutional no acute distress, cooperative <Katelyn Thomas - 01/25/21 09:13> - Routine HEENT Exam Head: Present: normocephalic, atraumatic <Katelyn Thomas 01/25/21 09:13> Eye: Present: EOMI, PERRL <Katelyn Thomas 01/25/21 09:13> ENT: Present: mucous membranes moist <Katelyn Thomas 01/25/21 09:13> - Routine Neck Exam Present: supple, full ROM, trachea midline. Absent: JVD, lymphadenopathy <Katelyn Thomas 01/25/21 09:13> - Routine Respiratory Exam Absent: accessory muscle use, respiratory distress <ThomasKatelyn 01/25/21 09:13> Comments: symmetric chest movement, able to speak in complete sentences <ThomasKatelyn 01/25/21 09:13> - Routine Cardiovascular Exam Present: RRR. Absent: JVD <Thomas,Katelyn 01/25/21 09:13> - Routine Abdominal Exam Present: soft. Absent: tenderness <Katelyn Thomas 01/25/21 09:13> - Routine Extremities Exam Present: edema. Absent: pulses intact, normal capillary refill, calf tenderness <ThomasKatelyn 01/25/21 09:13> Comments: Upon examination of the left lower extremity: There is a large open wound over the medial ankle with exposed bone/tendon and malodorous drainage. There is a large open wound over the lateral aspect of the ankle with exposed bone/tendon and malodorous drainage. The foot and ankle are diffusely dusky/purple in color, edematous, with significant necrotic tissue, peeling, and sloughing of the skin. The great toe, fourth toe, and fifth toe are gangrenous with peeling and sloughing of the skin. Skin present over the left heel is discolored and gangrenous. Any attempted movements of the left foot/ankle are painful. Pedal pulses are not palpable. Skin over the thigh, knee, and proximal calf is intact. Thigh is soft and nontender; Enrique's sign is negative. Sensation to light touch is grossly intact proximal to the left foot/ankle. <MarthaKatelyn 01/25/21 09:13> - Routine Skin Exam Present: cyanosis, wounds, gangrene. Absent: intact, jaundice <Katelyn Thomas - 01/25/21 09:14> - Routine Neurological Exam Present: alert, oriented X3, sensory deficit, moving all extremities, normal speech <F
[2021-01-25 09:28] LABS: Anisocytosis 1+; Hypochromasia 1+; Lymphocytes % 8 % (10-50); Microcytosis 2+; Monocytes % 5 % (2-9); Neutrophils % 87 % (42-76); Platelet Estimate Normal; Total Cells Counted 100
--- NOTE | 2021-01-25 10:15 | HMH.PHACONS ---
- Pharmacy Consult Date: 01/25/21 Time: 10:15 Referring provider: DR. PLAZA Reason for Consult:: VANCOMYCIN DOSING Allergies and ADEs:: Allergies Allergy/AdvReac Type Severity Reaction Status Date / Time adhesive Allergy Unknown I-RASH Verified 01/23/21 23:31 codeine Allergy Unknown NA-NAUSEA Verified 01/23/21 23:31 hydrocodone Allergy Unknown Verified 01/23/21 23:31 iodine Allergy Unknown I-RASH Verified 01/23/21 23:31 isosorbide Allergy Unknown CONFUSION Verified 01/23/21 23:31 Home Medications:: Home Medications Medication Instructions Recorded Confirmed Type Doxepin HCl [Sinequan 10mg capsule] 10 mg PO HS 01/23/21 01/23/21 History Doxycycline Hyclate 100 mg PO DAILY 01/23/21 01/23/21 History Gabapentin [Neurontin 800mg Tab] 800 mg PO TID 01/23/21 01/23/21 History Insulin Glargine,Hum.rec.anlog 50 units SQ AC 01/23/21 01/23/21 History [Lantus Solostar 100 Units/mL 3mL flexpen] Insulin Lispro [Humalog Kwikpen 10 unit SQ HS 01/23/21 01/23/21 History U-100] Losartan Potassium [Cozaar 50mg 50 mg PO DAILY 01/23/21 01/23/21 History Tablets] Magnesium Oxide [Mag-Oxide] 400 mg PO BID 01/23/21 01/23/21 History Melatonin 10 mg PO HS 01/23/21 01/23/21 History Metoprolol Succinate [Metoprolol 100 mg PO DAILY 01/23/21 01/23/21 History Succinate 100mg Tablet*] Morphine Sulfate [Morphine Sulfate 15 mg PO TID 01/23/21 01/23/21 History ER 15mg Tab] Oxycodone HCl 15 mg PO Q4H PRN 01/23/21 01/23/21 History Pantoprazole Sodium [Protonix 40mg 40 mg PO DAILY 01/23/21 01/23/21 History tablet] Prochlorperazine Maleate 10 mg PO Q6H PRN 01/23/21 01/23/21 History [Compazine 10mg tablet] Promethazine HCl [Phenergan 12.5mg 12.5 mg PO Q8H PRN 01/23/21 01/23/21 History tablet] Ropinirole HCl 1 mg PO HS 01/23/21 01/23/21 History Sennosides [Senna] 17.2 mg PO DAILY 01/23/21 01/23/21 History Trazodone HCl [Desyrel 50mg tablet] 50 mg PO HS 01/23/21 01/23/21 History fentaNYL [Fentanyl] 25 mcg TD Q72H 01/23/21 01/23/21 History Height: 1.6 m Weight: 86 kg Laboratory Results:: Laboratory Results - last 24 hr 01/24/21 12:11: POC Glucose 334 H* 01/24/21 16:32: POC Glucose 262 H 01/24/21 17:03: Urine Color Yellow, Urine Appearance Clear, Urine pH 8.5, Ur Specific [place] 1.020, Urine Protein Trace, Urine Glucose (UA) Negative, Urine Ketones 1+, Urine Blood Negative, Urine Nitrate Positive, Urine Bilirubin 2+ A, Urine Urobilinogen 0.2, Ur Leukocyte Esterase Negative, Urine RBC None, Urine WBC 3-5, Ur Squamous Epith Cells 3-5, Urine Bacteria Trace 01/25/21 05:14: POC Glucose 279 H 01/25/21 05:18: WBC 9.4, RBC 3.45 L, Hgb 8.3 L, Hct 28.2 L, MCV 81.7, MCH 24.0 L, MCHC 29.4 L, RDW 16.5, Plt Count 324, MPV 7.7, Neut % (Auto) 85.2 H, Lymph % (Auto) 11.0, [place] % (Auto) 3.6, Eos % (Auto) 0.1, Baso % (Auto) 0.1, Neut # (Auto) 8.0 H, Lymph # (Auto) 1.0, [place] # (Auto) 0.3, Eos # (Auto) 0.0, Baso # (Auto) 0.0, Total Counted 100, Neutrophils % (Manual) 87 H, Lymphocytes % (Manual) 8 L, Monocytes % (Manual) 5, Platelet Estimate Normal, Hypochromasia 1+, Anisocytosis 1+, Microcytosis 2+ 01/25/21 05:18: Sodium 134 L, Potassium 4.0, Chloride 94 L, Carbon Dioxide 30, Anion Gap 14.0, BUN 12, Creatinine 0.60, Estimated Creat Clear 76, Estimated GFR 100, Est GFR ( Amer) 121, Glucose 258 H, Calcium 9.6, Magnesium 1.4 L, Total Bilirubin 0.3, AST 53 H, ALT 29, Alkaline Phosphatase 168 H, Total Protein 6.5, Albumin 2.8 L D, Globulin 3.7 H, Albumin/Globulin Ratio 0.8 L Medical History: Reports:: Cancer, Chronic Obstructive Pulmonary Disease (COPD), Peripheral Artery Disease Assessment and Plan (1) Lung cancer Status: Acute Category: Medical Code(s): C34.90 - Malignant neoplasm of unspecified part of unspecified bronchus or lung (2) Gangrene of left foot Status: Acute Category: Medical Code(s): I96 - Gangrene, not elsewhere classified (3) Gangrene of toe of left foot Start date: 01/24/21 Problem details: gangr
--- NOTE | 2021-01-25 14:47 | P.PN_ITS ---
[facility] Anesthesia Checklist - Patient Identification Patient Identification: Arm Band - Structural Data Admitted From: Inpatient Planned Operative Procedure/s: Left BKA Consent for Planned Operative Procedure(s) Verified: Yes Verified Documents: Surgical Consent, History and Physical - NPO Status Verified Time NPO: 00:00 - Additional verifications Anesthesia Reactions: No - Airway Assessment C-Spine Mobility Assessed: Yes (mp2) TMJ Mobility Assessed: Yes Dentition: Edentulous - Neurological Assessment Level of Consciousness: Awake, Alert - Anesthesia Plan Anesthesia Risk discussed: Yes Anesthesia Plan: Verified ASA Class: IV Anesthesia Type: MAC w/Spinal - Preoperative Comments Pre-Operative Comments: Discussed with pt and daughter/poa (via phone) risks/benefits of anesthesia for Left BKA. Discussed DNR status and plan of care for pt. Pt and daughter both verbalized understanding of risks involved with procedure. [facility] History I have reviewed the patient's past medical history: Yes Medical History: Reports:: Cancer, Chronic Obstructive Pulmonary Disease (COPD), Peripheral Artery Disease *Have you ever received a pneumonia vaccine?: No *Have you received a flu vaccine this season?: No Anesthesia experience/problems:: nac Other Surgeries: Yes: Other - *Social History Smoking Status: Current every day smoker Tobacco Type: cigarettes # Packs/Day (cigarettes): 1 Alcohol Intake: never Substance Use Type: denies use *Occupational Status:: retired *Travel in the last 8 weeks: None Family Hx:: No significant family history
--- NOTE | 2021-01-25 15:25 | HMH.PHAINT ---
MEDICATION RECONCILIATION COMPLETED ON PATIENT BY OBTAINING MEDICATION LIST FROM [facility]. -YOHAN MARQUEZD
--- NOTE | 2021-01-25 17:50 | HMH.ANESI ---
[facility] Anesthesia Record Part I Intake, IV Amount: 500 Estimated blood loss (mL): 20 Urine output (mL): 300 Blood Pressure: 140/65 SaO2: 97 Pulse Rate: 90 Respiratory Rate: 16 Temperature: 97.5 F Patient is:: Awake, Stable Stable to PACU at:: 17:10
[2021-01-25 17:58] LABS: POC Glucose,Bedside 282 (70-110)
--- NOTE | 2021-01-25 18:16 | HMH.OPNOTE ---
Date of procedure: 01/25/21 Pre-op Diagnosis:: 1. Chronic severe pain, left lower extremity 2. Postoperative infection, left ankle 3. Infected nonhealing ulcers, left ankle 4. Gangrene, left foot Post-op Diagnosis:: Same Procedure performed:: Below-knee amputation, left Surgeon:: Jese Agrawal MD [employer] Bag Cutting Machine Operator(s):: Katelyn Thomas PA-C HEAVY REPAIRER:: Hakan Knapp Anesthesia: spinal Estimated blood loss (mL): 20 Clinical Note:: Patient is a 65-year-old female with multiple medical problems including postoperative infection of left ankle, gangrene of the left foot, diabetic infection left foot, osteomyelitis left ankle, metastatic lung cancer, type 2 diabetes mellitus, COPD and peripheral arterial disease with previous multiple foot surgeries on her left ankle. She was admitted to hospital with severe unremitting pain over the left foot and ankle with gangrene of the foot, deep ulcerations around the ankle with malodorous discharge. I was consulted for left below-knee amputation. Patient was previously recommended a below-knee amputation but she did not want to go through with it at that time. However, as she continues to have severe unremitting pain she has now decided to go ahead with the surgery. Following assessment after admission to hospital, I had a detailed discussion regarding management options with the patient and her daughter who is her her POA. Patient elected to proceed with a LEFT below-knee amputation which I think is the only realistic option for her at this stage. I have discussed about the procedure, risks and benefits and alternatives. The patient and her daughter expressed a full understanding and wished to proceed. I told her that we would plan on doing a left below-knee amputation but if the circulation is poor at this level, we would go ahead and perform an above-knee amputation. The complications discussed include but are not limited to infection, bleeding, injury to nerves and blood vessels, wound healing problems, prolonged pain and swelling, tender scar, further infection requiring oral or IV antibiotics, phantom pain, CRPS (complex regional pain syndrome- pain, sensory and temperature changes, swelling and stiffness), incomplete relief of pain, incomplete return of function, DVT, PE, ring sequestrum, likely need for further surgery in future and anesthetic problems including stroke, heart attack, and . I have discussed how there is a small but real possibility of loss of use of the limb, loss of the limb (proximal amputation) or loss of life itself. I have also explained how additional surgery may be required if there are any complications. We have also discussed the postoperative management, recovery and rehabilitation and the likely need for physical therapy, prosthetic limb fitting, the possibility of stiffness, osteomyelitis, chronic pain and we've also discussed the option of nonsurgical treatment. I strongly advised the patient to completely stop smoking and explained the rationale behind this advice. Also advised her about healthy lifestyle and healthy eating habits. The patient and her daughter understand and have asked appropriate questions. All the questions were answered and patient verbalized a good understanding. Patient desires to proceed with the below knee amputation of the left lower extremity. Patient understood the risks, agreed to proceed with surgery, signed the consent form and no guarantees or assurances were given or implied. Please refer to my consult note for full details. Operative findings:: Healthy looking and well perfused muscle and skin flaps at the level of the below knee amputation. No evidence of any infection or collections noted at this level. Tension-free wound closure was obtained. The amputated foot and ankle were infected with nonhealing postoperative wounds with a gangrenous foot as was noted preoperatively. Operative note:: On the day of surgery the patient was met i
--- NOTE | 2021-01-25 18:21 | SUR.PHASEI ---
180- detailed report called to susan hui on medsurg floor at this time. 1809- pt left in stable condition on med surg floor at this time
--- NOTE | 2021-01-25 19:29 | PC.NURSE ---
Patient non tele and on 3L NC. Patient is alert and oriented times 4. Patient went to OR at 1358 for Left BKA, returned to floor at 1840. Patient is resting with no reports of pain. Dressing clean dry and intact. PEG drain and adamson in place. Consent was signed by myself and second nurse, Saira Felix, with verbal consent from daughter over the phone. Bed in lowest position and phone and call light in reach. Will continue to monitor.
[2021-01-26] VITALS (16 sets, daily range): BP systolic 128–172; BP diastolic 58–85; PULSE 67–91; RESP 14–18; TEMP 36.6–37.2; O2SAT 98–100; BMI 31.6
[2021-01-26 02:08] LABS: Adenovirus F 40/41, stool Not Detected (NotDetected); Astrovirus Not Detected (NotDetected); Campylobacter Not Detected (NotDetected); Clostridium Difficile A/B, PCR Not Detected (NotDetected); Cryptosporidium Not Detected (NotDetected); Cyclospora Cayetanesis Not Detected (NotDetected); Entamoeba histolytica Not Detected (NotDetected); Enteroaggregative E coli Not Detected (NotDetected); Enteropathogenic E coli Not Detected (NotDetected); Enterotoxigenic E coli Not Detected (NotDetected); Giardia lamblia Not Detected (NotDetected); Norovirus Not Detected (NotDetected); Plesimonas Shigalloides, PCR Not Detected (NotDetected); Rotavirus A Not Detected (NotDetected); Salmonella, PCR Not Detected (NotDetected); Sapovirus Not Detected (NotDetected); Shiga-like toxin E coli Not Detected (NotDetected); Shigella Enterovasive E coli Not Detected (NotDetected); Vibrio Cholerae Not Detected (NotDetected); Vibrio, PCR Not Detected (NotDetected); Yersinia Entercolitica, PCR Not Detected (NotDetected)
[2021-01-26 06:22] LABS: POC Glucose,Bedside 222 (70-110)
[2021-01-26 06:35] LABS: Basophils % 0.1 % (0.1-2.0); Eosinophils % 0.6 % (0.1-12.0); Hemoglobin 7.8 g/dL (12.2-16.2); Lymphocytes # 0.9 K/mm3 (0.7-4.5); Lymphocytes % 20.1 % (10-50); Mean Corpuscular HGB Conc 28.6 g/dL (31.8-35.4); Mean Corpuscular Hemoglobin 23.6 pg (27.0-31.2); Mean Corpuscular Volume 82.6 fl (81-99); Mean Platelet Volume 7.4 fl (7.4-10.4); Monocytes # 0.2 K/mm3 (0.1-1.0); Monocytes % 3.2 % (1.7-9.3); Neutrophils # 3.6 K/mm3 (1.8-7.8); Platelet Count 308 K/mm3 (142-424); Red Blood Count 3.31 M/mm3 (4.20-5.40); Red Cell Distribution Width 16.4 % (11.5-17.5); White Blood Count 4.7 K/mm3 (4.8-10.8)
[2021-01-26 06:36] LABS: Hematocrit 27.4 % (37.0-47.0)
[2021-01-26 06:49] LABS: Chloride 100 mmol/L (98-107); Potassium 3.2 mmoL/L (3.5-5.1); Sodium 135 mmol/L (136-145)
[2021-01-26 06:52] LABS: Anion Gap 9.2 mEq/L (5-15); Blood Urea Nitrogen 10 mg/dl (7-17); Calcium 9.1 mg/dl (8.4-10.2); Carbon Dioxide 29 mmol/L (22.0-30.0); Creatinine Clearance Estimated 72 mL/min (50-200); Estimated Glomerular Filt Rate 124 ml/min (>60); GFR (African American) 150 ML/MIN (>60); Glucose 200 mg/dl (74-100)
[2021-01-26 06:57] LABS: C-Reactive Protein 180.2 mg/L (0-4)
[2021-01-26 07:03] LABS: Erythrocyte Sedimentation Rate 68 mm/hr (0-30)
--- NOTE | 2021-01-26 07:38 | HMH.ACPN2 ---
Internal Medicine - PN: Subj *Date: 01/26/21 *Time: :21 Interval history: Patient states she feels much better this morning since her amputation. Leg pain improved. Requiring less Dilaudid today. Up in bed eating breakfast on exam. Denies worsening shortness of breath, cough, nausea or vomiting, diarrhea, constipation. No fever or chills. Exam Vital signs and Labs for Last 24 Hours: Temp Pulse Resp BP Pulse Ox 97.9 F 67 18 155/67 H 99 01/26/21 04:00 01/26/21 04:00 01/26/21 04:00 01/26/21 04:00 01/26/21 04:00 Laboratory Results - last 24 hr 01/25/21 05:18: WBC 9.4, RBC 3.45 L, Hgb 8.3 L, Hct 28.2 L, MCV 81.7, MCH 24.0 L, MCHC 29.4 L, RDW 16.5, Plt Count 324, MPV 7.7, Neut % (Auto) 85.2 H, Lymph % (Auto) 11.0, [place] % (Auto) 3.6, Eos % (Auto) 0.1, Baso % (Auto) 0.1, Neut # (Auto) 8.0 H, Lymph # (Auto) 1.0, [place] # (Auto) 0.3, Eos # (Auto) 0.0, Baso # (Auto) 0.0, Total Counted 100, Neutrophils % (Manual) 87 H, Lymphocytes % (Manual) 8 L, Monocytes % (Manual) 5, Platelet Estimate Normal, Hypochromasia 1+, Anisocytosis 1+, Microcytosis 2+ 01/25/21 17:51: POC Glucose 282 H 01/26/21 02:00: Stl Aeromonas (PCR) Not detected, Stl C. cayetanensis PCR Not detected, Stool Rotavirus (PCR) Not detected, Stl Adenov F 40/41 PCR Not detected, Stool Astrovirus (PCR) Not detected, Stool Campylobacter PCR Not detected, Stl C.difficile Tox PCR Not detected, Stool Cryptosporidium PCR Not detected, Stl E.coli Shiga Tox PCR Not detected, Stool E coli O157 PCR Not detected, Stl Enterotoxigenic E PCR Not detected, Stool EPEC (PCR) Not detected, Stool EAEC (PCR) Not detected, Stl E. histolytica PCR Not detected, Stool Giardia Lamblia PCR Not detected, Stool Salmonella PCR Not detected, Stool Sapovirus (PCR) Not detected, Stl P. shigelloides PCR Not detected, Stl Shigella/EIEC PCR Not detected, St Y.enterocolitica PCR Not detected, Stool Vibrio (PCR) Not detected, Stl Vibrio cholerae PCR Not detected, Stl Norovirus GI/GII PCR Not detected 01/26/21 05:45: POC Glucose 222 H 01/26/21 05:50: WBC 4.7 L D, RBC 3.31 L, Hgb 7.8 L, Hct 27.4 L, MCV 82.6, MCH 23.6 L, MCHC 28.6 L, RDW 16.4, Plt Count 308, MPV 7.4, Neut % (Auto) 76.0, Lymph % (Auto) 20.1, [place] % (Auto) 3.2, Eos % (Auto) 0.6, Baso % (Auto) 0.1, Neut # (Auto) 3.6, Lymph # (Auto) 0.9, [place] # (Auto) 0.2, Eos # (Auto) 0.0, Baso # (Auto) 0.0 01/26/21 05:55: Sodium 135 L, Potassium 3.2 L, Chloride 100, Carbon Dioxide 29, Anion Gap 9.2, BUN 10, Creatinine 0.50 L, Estimated Creat Clear 72, Estimated GFR 124, Est GFR ( Amer) 150 D, Glucose 200 H, Calcium 9.1, C-Reactive Protein 180.2 H 01/26/21 05:55: ESR 68 H I & O for Last 24 hours: Intake & Output 01/23/21 01/24/21 01/25/21 01/26/21 23:59 23:59 23:59 23:59 Intake Total 540 / 540 740 / 740 Output Total 0 / 450 1600 / 1600 Balance 540 / 90 -860 / -860 Weight 86 kg 86 kg 86 kg 80.966 kg Microbiology Reports for the Last 24 Hours: Microbiology 01/23/21 22:12 Blood Blood Culture - Preliminary Proteus mirabilis 01/23/21 22:12 Blood Blood Culture - Preliminary Proteus mirabilis 01/25/21 17:00 Leg,Left - Wound Gram Stain - Final 01/24/21 08:22 Leg,Left Gram Stain - Final 01/24/21 08:22 Leg,Left Wound Culture - Preliminary Narrative: - Constitutional No acute distress, obese, chronically ill appearing - *Routine HEENT Exam Head: Present: normocephalic Eye: Present: EOMI, PERRL ENT: Present: mucous membranes moist - *Routine Neck Exam Present: supple. Absent: lymphadenopathy - *Routine Respiratory Exam Present: prolonged expiratory phase - *Routine Cardiovascular Exam Present: RRR - *Routine Abdominal Exam Present: soft, normoactive bowel sounds. Absent: tenderness - *Routine Extremities Exam No cyanosis, clubbing, edema; Left lower leg post amputation, dressing CDI. - *Routine Skin Exam Present: warm. Absent: rash - *Routin
[2021-01-26 11:47] LABS: POC Glucose,Bedside 278 (70-110)
[2021-01-26 13:51] LABS: Hematocrit 32.4 % (37.0-47.0)
[2021-01-26 13:53] LABS: Hemoglobin 9.6 g/dL (12.2-16.2)
[2021-01-26 17:12] LABS: POC Glucose,Bedside 228 (70-110)
--- NOTE | 2021-01-26 19:00 | PC.WOUNDNOTE ---
Stage 2 ulceration noted to coccyx and covered with pressure-relief dressing
--- NOTE | 2021-01-26 19:00 | PC.NURSE ---
Pt has been pleasant and cooperative this shift. A&O X4. Pt has complained of pain X2 thus far today and has been medicated with Dilaudid + Percocet per APR. Pt reports favorable results. Pt is currently receiving O2 via NC @ 2 LPM with sats. >90%. Lungs CTA. No edema noted. LLE surgical dressing C/D/I with PEG drain in place. Stage 2 ulceration noted to coccyx and pressure-relief dressing applied. Appetite is good and pt eats the majority of all meals. Pt has been turned Q2H this shift. FSBS results have been 278 and 228. F/C is patent and draining clear, yellow urine at bedside to gravity. Pt is incontinent and a brief is in place. 3 large, brown, loose stools noted today. 20 G peripheral IV in the RT forearm is patent and infusing LR @ 75 ML/HR. VSS. Call light within reach. Will continue to monitor.
[2021-01-26 21:33] LABS: POC Glucose,Bedside 285 (70-110)
[2021-01-26 21:33] LABS: POC Glucose,Bedside 155 (70-110)
[2021-01-26 21:33] LABS: POC Glucose,Bedside 210 (70-110)
[2021-01-26 21:33] LABS: POC Glucose,Bedside 239 (70-110)
[2021-01-27] VITALS: BP 166/64; PULSE 76; RESP 18; TEMP 36.7; O2SAT 96
[2021-01-27 04:00] VITALS: BP 165/64; PULSE 67; RESP 17; TEMP 37.9; O2SAT 99
[2021-01-27 05:05] VITALS: BMI 32.2
[2021-01-27 06:37] LABS: POC Glucose,Bedside 214 (70-110)
[2021-01-27 07:24] LABS: Chloride 98 mmol/L (98-107); Sodium 135 mmol/L (136-145)
[2021-01-27 07:25] LABS: Potassium 3.8 mmoL/L (3.5-5.1)
[2021-01-27 07:27] LABS: Blood Urea Nitrogen 11 mg/dl (7-17); Creatinine Clearance Estimated 73 mL/min (50-200); Estimated Glomerular Filt Rate 124 ml/min (>60); GFR (African American) 150 ML/MIN (>60)
[2021-01-27 07:28] LABS: Anion Gap 9.8 mEq/L (5-15); Calcium 9.1 mg/dl (8.4-10.2); Carbon Dioxide 31 mmol/L (22.0-30.0); Glucose 211 mg/dl (74-100)
[2021-01-27 07:49] LABS: Basophils % 0.2 % (0.1-2.0); Eosinophils # 0.1 K/mm3 (0.0-0.4); Eosinophils % 0.9 % (0.1-12.0); Hematocrit 33.9 % (37.0-47.0); Hemoglobin 10.1 g/dL (12.2-16.2); Lymphocytes % 18.3 % (10-50); Mean Corpuscular HGB Conc 29.6 g/dL (31.8-35.4); Mean Corpuscular Hemoglobin 25.3 pg (27.0-31.2); Mean Corpuscular Volume 85.5 fl (81-99); Mean Platelet Volume 7.4 fl (7.4-10.4); Monocytes # 0.2 K/mm3 (0.1-1.0); Monocytes % 3.7 % (1.7-9.3); Neutrophils # 4.1 K/mm3 (1.8-7.8); Neutrophils % 76.9 % (37.0-80.0); Platelet Count 312 K/mm3 (142-424); Red Blood Count 3.97 M/mm3 (4.20-5.40); Red Cell Distribution Width 17.2 % (11.5-17.5); White Blood Count 5.3 K/mm3 (4.8-10.8)
[2021-01-27 08:00] VITALS: BP 131/86; PULSE 77; RESP 24; TEMP 36.8; O2SAT 100
--- NOTE | 2021-01-27 09:08 | HMH.ACPN2 ---
Internal Medicine - PN: Subj *Date: 01/27/21 *Time: 10:51 Interval history: Patient's pain well controlled on current regimen however she has developed significant diarrhea and abdominal cramping over the past 12 to 24 hours. Per review of her chart she was on, or at least prescribed, significant doses of opiates while on hospice. Her regimen included fentanyl patch for a while, unclear when the last time she used that was. Was also on MS Contin 15 mg 3 times a day scheduled with as needed oxycodone. At this time she is only requiring 2-3 doses of opiates daily for her pain control. Stool sample negative for infectious etiology. Has also had antibiotics initiated for infection. Tolerating good p.o. intake with no nausea however. Concern the symptoms are related opiate withdrawal. Leg pain moderate compared to before amputation. No fever, chills, shortness of breath beyond baseline in the past 24 hours Exam Vital signs and Labs for Last 24 Hours: Temp Pulse Resp BP Pulse Ox 98.3 F 77 24 131/86 100 01/27/21 08:00 01/27/21 08:00 01/27/21 08:00 01/27/21 08:00 01/27/21 08:00 Laboratory Results - last 24 hr 01/24/21 20:32: POC Glucose 210 H 01/25/21 11:07: POC Glucose 239 H 01/25/21 21:25: POC Glucose 285 H 01/26/21 05:55: Blood Type Confirm O Negative 01/26/21 08:00: Blood Type O Negative, Antibody Screen Negative, Crossmatch (AHG) See Detail 01/26/21 11:18: POC Glucose 278 H 01/26/21 13:23: Hgb 9.6 L D, Hct 32.4 L 01/26/21 16:23: POC Glucose 228 H 01/26/21 20:10: POC Glucose 155 H 01/27/21 06:27: WBC 5.3, RBC 3.97 L, Hgb 10.1 L, Hct 33.9 L, MCV 85.5, MCH 25.3 L, MCHC 29.6 L, RDW 17.2, Plt Count 312, MPV 7.4, Neut % (Auto) 76.9, Lymph % (Auto) 18.3, [place] % (Auto) 3.7, Eos % (Auto) 0.9, Baso % (Auto) 0.2, Neut # (Auto) 4.1, Lymph # (Auto) 1.0, [place] # (Auto) 0.2, Eos # (Auto) 0.1, Baso # (Auto) 0.0 01/27/21 06:27: Sodium 135 L, Potassium 3.8, Chloride 98, Carbon Dioxide 31 H, Anion Gap 9.8, BUN 11, Creatinine 0.50 L, Estimated Creat Clear 73, Estimated GFR 124, Est GFR ( Amer) 150, Glucose 211 H, Calcium 9.1 01/27/21 06:29: POC Glucose 214 H I & O for Last 24 hours: Intake & Output 01/24/21 01/25/21 01/26/21 01/27/21 23:59 23:59 23:59 23:59 Intake Total 540 / 540 740 / 740 800 / 800 60 / 60 Output Total 0 / 450 1600 / 1600 30 / 1530 1500 / 1500 Balance 540 / 90 -860 / -860 770 / -730 -1440 / -1440 Weight 86 kg 86 kg 80.966 kg 82.508 kg Microbiology Reports for the Last 24 Hours: Microbiology 01/24/21 08:22 Leg,Left Gram Stain - Final 01/24/21 08:22 Leg,Left Wound Culture - Final Citrobacter braakii Proteus mirabilis 01/25/21 17:00 Leg,Left - Wound Gram Stain - Final 01/25/21 17:00 Leg,Left - Wound Wound Culture - Preliminary NO GROWTH AFTER 24 HOURS 01/23/21 22:12 Blood Blood Culture - Preliminary Proteus mirabilis 01/23/21 22:12 Blood Blood Culture - Preliminary Proteus mirabilis Narrative: - Constitutional No acute distress, obese, chronically ill appearing - *Routine HEENT Exam Head: Present: normocephalic Eye: Present: EOMI, PERRL ENT: Present: mucous membranes moist - *Routine Neck Exam Present: supple. Absent: lymphadenopathy - *Routine Respiratory Exam Present: prolonged expiratory phase - *Routine Cardiovascular Exam Present: RRR - *Routine Abdominal Exam Present: soft, hyperactive bowel sounds. non-focal tenderness - *Routine Extremities Exam No cyanosis, clubbing, edema; Left lower leg post amputation, dressing CDI. - *Routine Skin Exam Present: warm. Absent: rash - *Routine Neurological Exam Present: alert, oriented X3 Assessment and Plan (1) Lung cancer Status: Acute Category: Medical Code(s): C34.90 - Malignant neoplasm of unspecified part of unspecified bronchus or lung (2) Ga
[2021-01-27 16:00] VITALS: BP 148/51; PULSE 65; RESP 18; TEMP 37.1; O2SAT 100
[2021-01-27 18:12] LABS: Vancomycin,Trough 15.4 ug/mL (5.0-10.0)
--- NOTE | 2021-01-27 18:44 | PC.NURSE ---
spoke with nightwaqtch. instructed to hang dose as ordered
[2021-01-27 19:37] VITALS: BP 169/78; PULSE 74; RESP 18; TEMP 36.6; O2SAT 100
[2021-01-27 20:49] LABS: POC Glucose,Bedside 214 (70-110)
[2021-01-27 21:35] LABS: POC Glucose,Bedside 195 (70-110)
[2021-01-27 21:35] LABS: POC Glucose,Bedside 246 (70-110)
[2021-01-28] VITALS: BP 106/78; PULSE 75; RESP 17; TEMP 36.6; O2SAT 100
[2021-01-28 03:50] VITALS: BP 172/88; PULSE 71; RESP 18; TEMP 36.6; O2SAT 100
[2021-01-28 05:14] VITALS: BMI 32.1
--- NOTE | 2021-01-28 05:33 | PC.NURSE ---
Patient experienced no acute events overnight
[2021-01-28 05:53] LABS: POC Glucose,Bedside 149 (70-110)
[2021-01-28 07:03] LABS: Basophils % 0.1 % (0.1-2.0); Eosinophils # 0.1 K/mm3 (0.0-0.4); Hematocrit 35.3 % (37.0-47.0); Hemoglobin 10.2 g/dL (12.2-16.2); Lymphocytes # 1.1 K/mm3 (0.7-4.5); Lymphocytes % 23.3 % (10-50); Mean Corpuscular HGB Conc 29.1 g/dL (31.8-35.4); Mean Corpuscular Hemoglobin 24.3 pg (27.0-31.2); Mean Corpuscular Volume 83.6 fl (81-99); Mean Platelet Volume 7.6 fl (7.4-10.4); Monocytes # 0.2 K/mm3 (0.1-1.0); Neutrophils # 3.3 K/mm3 (1.8-7.8); Neutrophils % 70.6 % (37.0-80.0); Platelet Count 322 K/mm3 (142-424); Red Blood Count 4.22 M/mm3 (4.20-5.40); Red Cell Distribution Width 17.2 % (11.5-17.5); White Blood Count 4.6 K/mm3 (4.8-10.8)
[2021-01-28 07:06] LABS: Chloride 99 mmol/L (98-107)
[2021-01-28 07:07] LABS: Potassium 3.1 mmoL/L (3.5-5.1); Sodium 137 mmol/L (136-145)
[2021-01-28 07:09] LABS: Alanine Aminotransferase 21 U/L (12-78); Albumin Level 2.7 g/dl (3.5-5.0); Albumin/Globulin Ratio 0.8 (1.1-1.8); Alkaline Phosphatase 134 U/L (38-126); Anion Gap 6.1 mEq/L (5-15); Aspartate Amino Transferase 38 U/L (14-36); Bilirubin,Total 0.3 mg/dl (0.2-1.3); Blood Urea Nitrogen 8 mg/dl (7-17); Calcium 9.2 mg/dl (8.4-10.2); Carbon Dioxide 35 mmol/L (22.0-30.0); Creatinine Clearance Estimated 73 mL/min (50-200); Estimated Glomerular Filt Rate 124 ml/min (>60); GFR (African American) 150 ML/MIN (>60); Globulin 3.5 g/dL (1.3-3.2); Glucose 143 mg/dl (74-100); Total Protein,Serum 6.2 g/dl (6.3-8.2)
[2021-01-28 07:10] LABS: Magnesium 1.3 mg/dl (1.6-2.3)
[2021-01-28 08:00] VITALS: BP 152/68; PULSE 83; RESP 22; TEMP 36.8; O2SAT 100
--- NOTE | 2021-01-28 08:32 | HMH.ACPN2 ---
Internal Medicine - PN: Subj *Date: 01/28/21 *Time: 08:32 Interval history: Overall patient feels better this morning. Her pain is vastly improved after amputation. She is in good spirits. Exam Vital signs and Labs for Last 24 Hours: Temp Pulse Resp BP Pulse Ox 97.8 F 71 18 172/88 H 100 01/28/21 03:50 01/28/21 03:50 01/28/21 03:50 01/28/21 03:50 01/28/21 03:50 Laboratory Results - last 24 hr 01/27/21 11:45: POC Glucose 246 H 01/27/21 16:42: POC Glucose 195 H 01/27/21 17:36: Vancomycin Trough 15.4 H 01/27/21 20:22: POC Glucose 214 H 01/27/21 21:45: Vancomycin Peak 36.0 01/28/21 05:11: WBC 4.6 L, RBC 4.22, Hgb 10.2 L, Hct 35.3 L, MCV 83.6, MCH 24.3 L, MCHC 29.1 L, RDW 17.2, Plt Count 322, MPV 7.6, Neut % (Auto) 70.6, Lymph % (Auto) 23.3, [place] % (Auto) 4.0, Eos % (Auto) 2.0, Baso % (Auto) 0.1, Neut # (Auto) 3.3, Lymph # (Auto) 1.1, [place] # (Auto) 0.2, Eos # (Auto) 0.1, Baso # (Auto) 0.0 01/28/21 05:11: Sodium 137, Potassium 3.1 L, Chloride 99, Carbon Dioxide 35 H, Anion Gap 6.1, BUN 8 D, Creatinine 0.50 L, Estimated Creat Clear 73, Estimated GFR 124, Est GFR ( Amer) 150, Glucose 143 H D, Calcium 9.2, Magnesium 1.3 L, Total Bilirubin 0.3, AST 38 H D, ALT 21 D, Alkaline Phosphatase 134 H, Total Protein 6.2 L, Albumin 2.7 L, Globulin 3.5 H, Albumin/Globulin Ratio 0.8 L 01/28/21 05:11: POC Glucose 149 H I & O for Last 24 hours: Intake & Output 01/25/21 01/26/21 01/27/21 12/13/21 11:59 11:59 11:59 11:59 Intake Total 540 / 540 740 / 740 860 / 860 120 / 120 Output Total 750 / 750 850 / 850 1530 / 1530 2750 / 2750 Balance -210 / -210 -110 / -110 -670 / -670 -2630 / -2630 Weight 189 lb 9.561 oz 178 lb 8 oz 181 lb 14.4 oz 181 lb 3.2 oz Microbiology Reports for the Last 24 Hours: Microbiology 01/25/21 17:00 Leg,Left - Wound Gram Stain - Final 01/25/21 17:00 Leg,Left - Wound Wound Culture - Preliminary NO GROWTH AFTER 48 HOURS 01/25/21 17:00 Leg,Left - Wound - Final 01/24/21 08:22 Leg,Left Gram Stain - Final 01/24/21 08:22 Leg,Left Wound Culture - Final Citrobacter braakii Proteus mirabilis Narrative: Wearing 2 L oxygen, comfortable. Breathing easily. Anterior lung jane clear. Heart rate regular. Abdomen soft. Right leg without edema. Left bandage clean/dry/intact on recent BKA. Neurologically moving all extremities and oriented. Assessment and Plan (1) Lung cancer Status: Acute Category: Medical Code(s): C34.90 - Malignant neoplasm of unspecified part of unspecified bronchus or lung (2) Gangrene of left foot Status: Acute Category: Medical Code(s): I96 - Gangrene, not elsewhere classified (3) Gangrene of toe of left foot Start date: 01/24/21 Problem details: gangrene to left hallux, 4th and 5th toes Status: Acute Category: Medical Code(s): I96 - Gangrene, not elsewhere classified (4) Edema of left foot Start date: 01/24/21 Status: Acute Category: Medical Code(s): R60.0 - Localized edema (5) Gas gangrene Start date: 01/24/21 Status: Acute Category: Medical Code(s): A48.0 - Gas gangrene (6) Acute osteomyelitis of left ankle Start date: 01/24/21 Status: Acute Category: Medical Code(s): M86.172 - Other acute osteomyelitis, left ankle and foot (7) Acute osteomyelitis of left calcaneus Start date: 01/24/21 Status: Acute Category: Medical Code(s): M86.172 - Other acute osteomyelitis, left ankle and foot (8) Diabetic ulcer of left great toe Start date: 01/24/21 Status: Acute Category: Medical Code(s): E11.621 - Type 2 diabetes mellitus with foot ulcer; L97.529 - Non-pressure chronic ulcer of other part of left foot with unspecified severity (9) Diarrhea Status: Acute Category: Medical Code(s): R19.7 - Diarrhea, unspecified - Assessment and plan all Dx Assessment and Plan for all problems::
--- NOTE | 2021-01-28 09:58 | HMH.OTEV ---
OT Inpatient Evaluation Rehab OT IP Evaluation Start: 01/28/21 08:31 Freq: ONCE Status: Complete Protocol: Document 01/28/21 09:48 [facility] (Rec: 01/28/21 09:58 [facility] [id number]) Rehab OT IP Assessment Subjective History Pt oriented x 3 on arrival. Pt agreeable to engage in therapy evaluation. Pt was admitted via ED on 01/24/21 due to L foot pain/gangrene. Therapist copied the following information from doctors physical and history report: 65-year-old white female who apparently is on hospice care for lung cancer, and is in palliative care mode and maintains a DNR status. She is really unable to provide much of the medical history and does not have a primary care physician identified. Apparently she has been diagnosed with a gangrene of her foot over the past weeks but has avoided surgery/ declined surgery because she has been on hospice care with her lung cancer. However, the pain in the left foot has become intolerable, and she came to the emergency department last night wishing to have treatment/amputation done. This morning she reports that she has intolerable pain and I want my foot cut off as soon as possible. Pt has a past medical history of Cancer, Chronic Obstructive Pulmonary Disease (COPD), Peripheral Artery Disease. Pt had a BKA on 01/25/21. Prior to being in hospital she lived with her daughter and was receiving hospice care. Pt explains she was able to dressing herself and feed herself. She required assistance when taking
--- NOTE | 2021-01-28 10:44 | SW/DCPLANNER ---
Addendum entered by Ciera Lovell 01/30/21 07:36: [facility] DECLINED REFERRAL AND IT WAS SENT TO [facility].. SHE HAS BEEN ACCEPTED THERE, I HAVE SPOKEN WITH PATIENT AND SHE DOES WISH TO HAVE HOSPICE INVOLVED WITH HER CARE. I HAVE INFORMED [facility] TO CONTACT HOSPICE WHEN SHE GETS THERE TO COME AND ADMIT SINCE SHE IS ALREADY A CANDIDATE SINCE THEY HAVE HAD HER IN THE RECENT PAST. Addendum entered by Ciera Lovell 01/29/21 09:50: SENT REFERRAL TO [facility] FOR THIS PATIENT, WAITING TO HEAR BACK.... Addendum entered by Ciera Lovell 01/28/21 14:19: [facility] WOULD NOT ACCEPT THIS PATIENT R/T NOT BEING VACCINATED... I SPOKE WITH PATIENT AND SHE WAS DISAPPOINTED BECAUSE SHE WANTED TO BE CLOSE TO HER MOTHER WHO IS A PATIENT THERE..THERE IS ONLY ONE FEMALE BED AND THEY CAN'T PUT HER IN THAT ROOM.. I ASKED [facility] IF I COULD SEND IT OUT TO PLACES THAT MAY HAVE A BED AND SHE SAID YES... I HAVE SENT IT TO [facility] WAITING TO HEAR BACK TO SEE IF SHE CAN GO THERE.. Original Note: SENT REFERRAL TO [facility] TO SEE IF THEY WILL ACCEPT THIS PATIENT AND HOSPICE TO FOLLOW.. PATIENT STATED HER MOTHER IS THERE AND SHE WOULD LIKE TO BE THERE CLOSE TO HER.. DR WHATLEY STATED IF ACCEPTED HE WOULD CARE FOR HER THERE.... I SPOKE WITH MATEO, TUB WASH OPERATOR AND SHE SAID SHE DIDN'T KNOW IF THEY CAN TAKE HER SINCE SHE HAS NOT BEEN VACCINATED. SHE SAID SHE ONLY HAS ONE FEMALE MEDICAID BED AND SINCE THIS PATIENT HAS NOT BEEN VACCINATED SHE DIDN'T THINK THEY COULD PUT HER IN THE ROOM WITH HER.. I DID SEND A PACKET AND WAITING TO HEAR BACK IF THEY CAN ACCEPT HER OR NOT.. IF SO SHE MAY BE ABLE TO GO [facility] PENDING NO SETBACKS...
--- NOTE | 2021-01-28 10:57 | HMH.PTEV ---
Physical Therapy Evaluation Rehab PT IP Evaluation Start: 01/28/21 08:31 Freq: ONCE Status: Active Protocol: Document 01/28/21 10:49 PWJEFF (Rec: 01/28/21 10:57 [email or web address] [id number]) Subjective/History History History This is the initial evaluation for Denise Goldberg. Pt is a 65 y/o female admitted to [facility] for L foot gangrene that has now resulted in s/p L BKA. Pt was supine in bed on supplemental O2 upon arrival. Pt reported dizziness/ lightheadedness during transfer from bed to chair. - note done by Bridgett Angela, SPT Subjective Subjective Pt states she was living with her dusimonehter in a trailer prior to this medical epsiode. Pt states she used a w/c to get around by herself. Pt states she did not walk prior to this medical episode. Rehab PT IP Eval Objective Appearance Patient Behavior Appropriate,Cooperative Patient Orientation Place,Name,Birthday,Year Difficulty following instructions none Speech Pattern Clear,Appropriate,Coherent Ambulation Patient Able to Ambulate No Balance Ability to Arise Able, uses arms to help Sitting Balance Steady, safe Standing Balance Narrow stance w/o support Dynamic Sitting Balance Ability Good Dynamic Standing Balance Ability Fair Transfers Bed Transfer Ability Independent Chair Transfer Ability Contact Guard/Hand Hold Sit to Stand Bed Transfer Ability Contact Guard/Hand Hold Rehab PT IP prob,goals,plan Problems Date of Evaluation: 01/28/21 PT IP Problems Bed Mobility,Transfers,Gait, Balance,Self care,Safety Rehab Potential Rehab Potential Fair Equipment Needs Assistive Devices Rolling / Wheeled Walker, Wheelchair Plan PT Intervention Plan Bed Mobility,Transfers,Gait, Balance,Self care,Safety, Therapeutic Exercise PT Plan Frequency BID Duration LOS Discharge Goals Bed Transfer Ability Independent Sit to Stand Chair Transfer Ability Minimal x 1 (25% assist) Ambulation Assistive Device Rolling Walker Discharge Plan PT Discharge Plan Pt will benefit from aimee
--- NOTE | 2021-01-28 13:17 | P.PN_ITS ---
[facility] Anesthesia Record Part II Discharge Time: 18:10 Destination: Second Floor PACU nurse assessment reviewed?: Yes Patient Condition:: Good Anesthesia Complications:: None Swallowing reflex intact?: Yes Cyanosis?: No Blood Pressure: 124/60 Pulse Rate: 80 Temperature: 97.1 F Mental Status: Alert & Oriented Pain level:: 0 Nausea and/or vomitting:: None Intake, IV Amount: 0
[2021-01-28 13:18] VITALS: BP 124/60; PULSE 80; TEMP 36.2
[2021-01-28 16:00] VITALS: BP 138/66; PULSE 85; RESP 21; O2SAT 93
[2021-01-28 20:00] VITALS: BP 138/85; PULSE 65; RESP 17; TEMP 36.6; O2SAT 100
--- NOTE | 2021-01-28 20:32 | HMH.ORTHPN ---
Subjective Date: 01/28/21 <Katelyn Thomas - 01/28/21 20:32> Time: 20:15 <Katelyn Thomas - 01/28/21 20:32> Principal diagnosis: Left foot infection/gangrene <Katelyn Thomas - 01/28/21 20:32> Interval history: Patient is a 65-year-old female who underwent an uneventful left BKA on 01/25/2021. Today she is postop day #3. This evening the patient is lying comfortably in bed. She is alert, able to tell me her name, where she is, and why she is here. She reports some leg pain in her left residual limb but states that it is greatly improved compared to her leg pain prior to surgery and she states that is well controlled with pain medication. She reports that she is eating and drinking well. She denies nausea, vomiting, shortness of breath, chest pain, fever, chills, rigors, or any other symptoms or concerns at this time. <Katelyn Thomas - 01/29/21 09:12> PN: Obj Ex Vital signs: Temp Pulse Resp BP Pulse Ox 99.2 F 79 18 149/88 H 98 01/29/21 08:00 01/29/21 08:00 01/29/21 08:00 01/29/21 08:00 01/29/21 08:00 <Jese Agrawal Lobo - 01/29/21 17:08> Temp Pulse Resp BP Pulse Ox 98 F 65 17 138/85 100 01/28/21 20:00 01/28/21 20:00 01/28/21 20:00 01/28/21 20:00 01/28/21 20:00 <Katelyn Thomas - 01/28/21 20:32> - Constitutional no acute distress, obese <Katelyn Thomas - 01/28/21 20:40> - Routine HEENT Exam Head: Present: normocephalic, atraumatic <Katelyn Thomas - 01/28/21 20:40> ENT: Present: mucous membranes moist <Katelyn Thomas 01/28/21 20:40> - Routine Neck Exam Present: supple, full ROM, trachea midline. Absent: JVD <Katelyn Thomas 01/28/21 20:40> - Routine Respiratory Exam Absent: accessory muscle use, respiratory distress <Katelyn Thomas 01/28/21 20:40> Comments: Symmetric chest movement, able speak in complete sentences <Katelyn Thomas 01/28/21 20:40> - Routine Cardiovascular Exam Present: RRR. Absent: JVD <Katelyn Thomas 01/28/21 20:40> Comments: Normal peripheral pulses <Katelyn Thomas 01/28/21 20:40> - Routine Abdominal Exam Present: soft. Absent: tenderness <Katelyn Thomas 01/28/21 20:40> - Routine Extremities Exam Comments: Upon examination of the left lower residual limb: Dressings present over the left lower limb are clean, dry, and intact. There is a sugar tong splint in place. Out of the dressings, the surgical incision is clean, dry, and healthy-appearing. No erythema, induration, bleeding, drainage, or other signs of infection noted. The distal flap is pink and well vascularized. <Katelyn Thomas 01/29/21 09:12> - Routine Skin Exam Present: intact, normal turgor. Absent: erythema, jaundice <Katelyn Thomas 01/28/21 20:40> - Routine Neurological Exam Present: alert, oriented X3, moving all extremities, normal speech <Katelyn Thomas 01/28/21 20:40> - Routine Psychiatric Exam Present: normal affect, cooperative <Katelyn Thomas 01/28/21 20:40> - Urinary Catheter Management Gleason Cath placed during this visit: no <Jese Agrawal - 01/29/21 17:08> no <Katelyn Thomas 01/29/21 09:12> Progress Note: A&P (1) Lung cancer Status: Acute (2) Gangrene of left foot Status: Acute (3) Gangrene of toe of left foot Problem details: gangrene to left hallux, 4th and 5th toes Status: Acute (4) Edema of left foot Status: Acute (5) Gas gangrene Status: Acute (6) Acute osteomyelitis of left ankle Status: Acute (7) Acute osteomyelitis of left calcaneus Status: Acute (8) Diabetic ulcer of left great toe Status: Acute (9) Diarrhea Status: Acute <Esau Agrawalan Yamil - 01/29/21 17:08> (1) Lung cancer Status: Acute (2) Gangrene of left foot Status: Acute (3) Gangrene of toe of left foot Problem details: gangrene to left hallux, 4th and 5th toes Status: Acute (4) Edema of left foot Status: Ac
[2021-01-28 21:21] LABS: POC Glucose,Bedside 281 (70-110)
[2021-01-28 21:21] LABS: POC Glucose,Bedside 214 (70-110)
[2021-01-28 21:21] LABS: POC Glucose,Bedside 276 (70-110)
[2021-01-29 03:53] VITALS: BP 163/78; PULSE 65; RESP 17; TEMP 36.6; O2SAT 93
[2021-01-29 05:11] VITALS: BMI 31.8
--- NOTE | 2021-01-29 05:17 | PC.NURSE ---
LATE ENTRY: At approximately [address] Agrawal dressing was reapplied after MD had removed PEG drain. Xeroform 1 x8 (x3) used, 4x4 gauze, ABD pad, 6 soft roll, splint reapplied, 6 DERECK bandaged applied Patient tolerated well.
[2021-01-29 06:10] LABS: POC Glucose,Bedside 117 (70-110)
[2021-01-29 06:45] LABS: Basophils % 0.5 % (0.1-2.0); Eosinophils # 0.1 K/mm3 (0.0-0.4); Eosinophils % 2.5 % (0.1-12.0); Hematocrit 31.6 % (37.0-47.0); Hemoglobin 9.5 g/dL (12.2-16.2); Lymphocytes # 1.4 K/mm3 (0.7-4.5); Lymphocytes % 31.6 % (10-50); Mean Corpuscular HGB Conc 29.9 g/dL (31.8-35.4); Mean Corpuscular Hemoglobin 24.6 pg (27.0-31.2); Mean Platelet Volume 7.1 fl (7.4-10.4); Monocytes # 0.2 K/mm3 (0.1-1.0); Monocytes % 4.8 % (1.7-9.3); Neutrophils # 2.8 K/mm3 (1.8-7.8); Neutrophils % 60.7 % (37.0-80.0); Platelet Count 326 K/mm3 (142-424); Red Blood Count 3.86 M/mm3 (4.20-5.40); Red Cell Distribution Width 17.6 % (11.5-17.5); White Blood Count 4.6 K/mm3 (4.8-10.8)
--- NOTE | 2021-01-29 06:45 | HMH.ACPN2 ---
Internal Medicine - PN: Subj *Date: 01/29/21 *Time: 14:10 Interval history: No issues overnight. Diarrhea improving. Stable on baseline oxygen. Pain well controlled with current regimen. No fevers. Blood pressure acceptable. Tolerating fair p.o. intake. Exam Vital signs and Labs for Last 24 Hours: Temp Pulse Resp BP Pulse Ox 97.9 F 65 17 163/78 H 93 L 01/29/21 03:53 01/29/21 03:53 01/29/21 03:53 01/29/21 03:53 01/29/21 03:53 Laboratory Results - last 24 hr 01/28/21 05:11: WBC 4.6 L, RBC 4.22, Hgb 10.2 L, Hct 35.3 L, MCV 83.6, MCH 24.3 L, MCHC 29.1 L, RDW 17.2, Plt Count 322, MPV 7.6, Neut % (Auto) 70.6, Lymph % (Auto) 23.3, [place] % (Auto) 4.0, Eos % (Auto) 2.0, Baso % (Auto) 0.1, Neut # (Auto) 3.3, Lymph # (Auto) 1.1, [place] # (Auto) 0.2, Eos # (Auto) 0.1, Baso # (Auto) 0.0 01/28/21 05:11: Sodium 137, Potassium 3.1 L, Chloride 99, Carbon Dioxide 35 H, Anion Gap 6.1, BUN 8 D, Creatinine 0.50 L, Estimated Creat Clear 73, Estimated GFR 124, Est GFR ( Amer) 150, Glucose 143 H D, Calcium 9.2, Magnesium 1.3 L, Total Bilirubin 0.3, AST 38 H D, ALT 21 D, Alkaline Phosphatase 134 H, Total Protein 6.2 L, Albumin 2.7 L, Globulin 3.5 H, Albumin/Globulin Ratio 0.8 L 01/28/21 11:52: POC Glucose 276 H 01/28/21 18:25: POC Glucose 281 H 01/28/21 20:43: POC Glucose 214 H 01/29/21 05:59: POC Glucose 117 H I & O for Last 24 hours: Intake & Output 01/26/21 01/27/21 01/28/21 01/29/21 23:59 23:59 23:59 23:59 Intake Total 800 / 800 180 / 180 720 / 720 Output Total 30 / 1530 2049 2600 / 2600 Balance 770 / -730 -1870 / -1870 -1880 / -1880 Weight 80.966 kg 82.508 kg 82.191 kg 81.465 kg Microbiology Reports for the Last 24 Hours: Microbiology 01/25/21 17:00 Leg,Left - Wound Gram Stain - Final 01/25/21 17:00 Leg,Left - Wound Wound Culture - Preliminary NO GROWTH AFTER 72 HOURS Narrative: - Constitutional No acute distress, obese, chronically ill appearing - *Routine HEENT Exam Head: Present: normocephalic Eye: Present: EOMI, PERRL ENT: Present: mucous membranes moist - *Routine Neck Exam Present: supple. Absent: lymphadenopathy - *Routine Respiratory Exam Present: prolonged expiratory phase - *Routine Cardiovascular Exam Present: RRR - *Routine Abdominal Exam Present: soft, normoactive bowel sounds. non-focal tenderness - *Routine Extremities Exam No cyanosis, clubbing, edema; Left lower leg post amputation, dressing CDI. - *Routine Skin Exam Present: warm. Absent: rash - *Routine Neurological Exam Present: alert, oriented X3 Assessment and Plan (1) Lung cancer Status: Acute Category: Medical Code(s): C34.90 - Malignant neoplasm of unspecified part of unspecified bronchus or lung (2) Gangrene of left foot Status: Acute Category: Medical Code(s): I96 - Gangrene, not elsewhere classified (3) Gangrene of toe of left foot Start date: 01/24/21 Problem details: gangrene to left hallux, 4th and 5th toes Status: Acute Category: Medical Code(s): I96 - Gangrene, not elsewhere classified (4) Edema of left foot Start date: 01/24/21 Status: Acute Category: Medical Code(s): R60.0 - Localized edema (5) Gas gangrene Start date: 01/24/21 Status: Acute Category: Medical Code(s): A48.0 - Gas gangrene (6) Acute osteomyelitis of left ankle Start date: 01/24/21 Status: Acute Category: Medical Code(s): M86.172 - Other acute osteomyelitis, left ankle and foot (7) Acute osteomyelitis of left calcaneus Start date: 01/24/21 Status: Acute Category: Medical Code(s): M86.172 - Other acute osteomyelitis, left ankle and foot (8) Diabetic ulcer of left great toe Start date: 01/24/21 Status: Acute Category: Medical Code(s): E11.621 - Type 2 diabetes mellitus with foot ulcer; L97.529 - Non-pressure chronic ulcer of other part of left foot with unspecified severity (9) Diarrhea Sta
[2021-01-29 06:53] LABS: Chloride 98 mmol/L (98-107); Potassium 3.3 mmoL/L (3.5-5.1); Sodium 137 mmol/L (136-145)
[2021-01-29 06:56] LABS: Anion Gap 6.3 mEq/L (5-15); Blood Urea Nitrogen 12 mg/dl (7-17); Calcium 8.9 mg/dl (8.4-10.2); Carbon Dioxide 36 mmol/L (22.0-30.0); Creatinine Clearance Estimated 72 mL/min (50-200); Estimated Glomerular Filt Rate 124 ml/min (>60); GFR (African American) 150 ML/MIN (>60); Glucose 111 mg/dl (74-100)
[2021-01-29 07:18] LABS: Magnesium 1.4 mg/dl (1.6-2.3)
[2021-01-29 08:00] VITALS: BP 149/88; PULSE 79; RESP 18; TEMP 37.3; O2SAT 95; O2SAT 98
--- NOTE | 2021-01-29 09:32 | HMH.ORTHPN ---
Subjective Date: 01/29/21 <MarthaKatelyn - 01/29/21 09:34> Time: 08:50 <Katelyn Thomas 01/29/21 09:34> Principal diagnosis: Left foot infection/gangrene <Katelyn Thomas 01/29/21 09:34> Interval history: Patient is a 65-year-old female who underwent an uneventful left BKA on 01/25/2021. Today she is postop day #4. This morning the patient is lying comfortably in bed. She continues to report some leg pain in her left residual limb but states that is well controlled with pain medication. She reports that she is eating and drinking well. She denies nausea, vomiting, shortness of breath, chest pain, fever, chills, rigors, or any other symptoms or concerns at this time. <Katelyn Thomas - 01/29/21 11:56> PN: Obj Ex Vital signs: Temp Pulse Resp BP Pulse Ox 99.2 F 79 18 149/88 H 98 01/29/21 08:00 01/29/21 08:00 01/29/21 08:00 01/29/21 08:00 01/29/21 08:00 <Jese Agrawal - 01/29/21 17:07> Temp Pulse Resp BP Pulse Ox 97.9 F 65 17 163/78 H 93 L 01/29/21 03:53 01/29/21 03:53 01/29/21 03:53 01/29/21 03:53 01/29/21 03:53 <Katelyn Thomas 01/29/21 09:34> - Constitutional no acute distress, obese <Katelyn Thomas 01/29/21 09:34> - Routine HEENT Exam Head: Present: normocephalic, atraumatic <Kateyln Thomas 01/29/21 09:34> Eye: Present: EOMI, PERRL <Katelyn Thomas 01/29/21 09:34> ENT: Present: mucous membranes moist <Katelyn Thomas 01/29/21 09:34> - Routine Neck Exam Present: supple, full ROM, trachea midline. Absent: JVD <Katelyn Thomas 01/29/21 09:34> - Routine Respiratory Exam Absent: accessory muscle use, respiratory distress <Katelyn Thomas 01/29/21 09:34> Comments: Able to speak in complete sentences, symmetric chest movement <Katelyn Thomas 01/29/21 09:34> - Routine Cardiovascular Exam Present: RRR. Absent: JVD <Katelyn Thomas 01/29/21 09:34> Comments: Normal peripheral pulses <Katelyn Thomas 01/29/21 09:34> - Routine Abdominal Exam Present: soft. Absent: tenderness <Katelyn Thomas 01/29/21 09:34> - Routine Extremities Exam Absent: cyanosis <Katelyn Thomas 01/29/21 09:34> Comments: Upon examination of the left lower residual limb: The surgical dressings over the left limb are clean, dry, and intact. No evidence of drainage or bleeding noted. There is a sugar tong splint in place. <Katelyn Thomas 01/29/21 11:56> - Routine Skin Exam Present: intact, normal turgor. Absent: cyanosis, erythema, jaundice <Katelyn Thomas 01/29/21 09:34> - Routine Neurological Exam Present: alert, oriented X3, moving all extremities, normal tone, normal speech. Absent: sensory deficit, motor deficit <Katelyn Thomas 01/29/21 09:34> - Routine Psychiatric Exam Present: normal affect, cooperative <Katelyn Thomas 01/29/21 09:34> - Urinary Catheter Management Gleason Cath placed during this visit: no <Jese Agrawal - 01/29/21 17:07> no <Katelyn Thomas 01/29/21 13:26> Urethral indwelling: No <Katelyn Thomas 01/29/21 09:34> Progress Note: A&P (1) Lung cancer Status: Acute (2) Gangrene of left foot Status: Acute (3) Gangrene of toe of left foot Problem details: gangrene to left hallux, 4th and 5th toes Status: Acute (4) Edema of left foot Status: Acute (5) Gas gangrene Status: Acute (6) Acute osteomyelitis of left ankle Status: Acute (7) Acute osteomyelitis of left calcaneus Status: Acute (8) Diabetic ulcer of left great toe Status: Acute (9) Diarrhea Status: Acute <Jees Agrawal - 01/29/21 17:07> (1) Lung cancer Status: Acute (2) Gangrene of left foot Status: Acute (3) Gangrene of toe of left foot Problem details: gangrene to left hallux, 4th and 5th toes Status: Acute (4) Edema of left foot Status: Acute (5) Gas gangrene Status: Acute (6) Acute osteomyeli
[2021-01-29 12:13] LABS: POC Glucose,Bedside 249 (70-110)
[2021-01-29 16:00] VITALS: BP 149/76; PULSE 57; RESP 16; TEMP 36.8; O2SAT 98
[2021-01-29 17:25] LABS: POC Glucose,Bedside 214 (70-110)
[2021-01-29 20:00] VITALS: BP 149/78; PULSE 64; RESP 16; TEMP 37.2; O2SAT 95
--- NOTE | 2021-01-29 20:00 | PC.NURSE ---
NO ACUTE CHAHNES THIS SHIFT, DSG REMAIN C/D/I. PAIN MEDS BHARGAV ORDERED WITH GOOD EFFECTIVENESS NOTED. 2LNC THIS AM BUT WAS PLACE ON ROOM AIR AND TOLERATED WELL.
[2021-01-30 04:00] VITALS: BP 156/61; PULSE 73; RESP 16; TEMP 36.9; O2SAT 94
[2021-01-30 05:36] VITALS: BMI 31.8
[2021-01-30 06:25] LABS: POC Glucose,Bedside 153 (70-110)
[2021-01-30 06:25] LABS: POC Glucose,Bedside 181 (70-110)
--- NOTE | 2021-01-30 07:01 | PC.NURSE ---
pt rested ok through the night, pt requiring routine pain meds, pt still with loose BM through the night and frequent urination. VSS, dressing to left stump CDI, noted redness to coccyx area, pt encouraged to turn self frequently.
[2021-01-30 08:00] VITALS: BP 165/88; PULSE 75; RESP 18; TEMP 36.9; O2SAT 94; O2SAT 96
--- NOTE | 2021-01-30 08:16 | HMH.DCSUM ---
General - General Admission date:: 01/23/21 Discharge date: 01/30/21 HPI HPI: 65-year-old white female who apparently is on hospice care for lung cancer, and is in palliative care mode and maintains a DNR status. She is really unable to provide much of the medical history and does not have a primary care physician identified. Apparently she has been diagnosed with a gangrene of her foot over the past weeks but has avoided surgery/declined surgery because she has been on hospice care with her lung cancer. However, the pain in the left foot has become intolerable, and she came to the emergency department last night wishing to have treatment/amputation done. This morning she reports that she has intolerable pain and I want my foot cut off as soon as possible. Hospital Course Hospital Course: Patient was admitted. Orthopedics was consulted because of significant pain in her gangrene her leg and took her for amputation on 01/25 and underwent left BKA without complications. Patient had extreme relief of her pain and felt much better, also felt much better systemically with less feelings of fevers and chills. She had cultures from the leg wound showing Proteus as well as a Citrobacter species and also had evidence of Proteus bacteremia with 2 blood cultures positive on admission. She was placed on intravenous ceftriaxone and tolerated this well. Sensitivities from the bloodstream infection showed good response to cephalosporins. Patient did develop some diarrhea. C. difficile titers were negative. Given patient's marked reduction in pain medication because of the leg amputation and the source of her pain it was felt that she was having some GI withdrawal symptoms and her oxycodone was placed on a scheduled basis which resolved her diarrhea. Given patient's need for supportive care, recent amputation and her ongoing needs for hospice care for her end-stage lung cancer, she will be transferred to the [facility] today with 1 more week of antibiotics scheduled for her Proteus sepsis. She will also be placed on scheduled pain medication. She will continue to follow with hospice. Continue to maintain a DNR status. [facility] Objective Vital signs: Temp Pulse Resp BP Pulse Ox 98.5 F 73 16 156/61 H 94 L 01/30/21 04:00 01/30/21 04:00 01/30/21 04:00 01/30/21 04:00 01/30/21 04:00 no acute distress - *Routine HEENT Exam Head: Present: normocephalic Eye: Present: EOMI, PERRL ENT: Present: mucous membranes moist - *Routine Neck Exam Present: supple - *Routine Respiratory Exam Present: rhonchi - *Routine Cardiovascular Exam Present: RRR - *Routine Abdominal Exam Present: soft, normoactive bowel sounds. Absent: tenderness - *Routine Extremities Exam Absent: cyanosis, clubbing, edema Comments: No edema in the right leg. Stump site dressing looks good on the left side. - *Routine Skin Exam Present: warm. Absent: rash - Detailed Eye Exam Eyelids: Bilateral normal inspection Results Labs on day of discharge: Labs from last 24 hours 01/30/21 01/29/21 01/29/21 06:09 20:21 16:55 POC Glucose 153 H 181 H 214 H 01/29/21 12:05 POC Glucose 249 H Preliminary micro results at discharge 01/23/21 22:12 Blood Culture - Preliminary Blood Proteus mirabilis 01/23/21 22:12 Blood Culture - Preliminary Blood Proteus mirabilis DS: Diagnosis - Discharge Diagnosis (1) Lung cancer Status: Chronic (2) Gangrene of left foot Status: Resolved (3) Gangrene of toe of left foot Status: Resolved Problem details: gangrene to left hallux, 4th and 5th toes (4) Edema of left foot Status: Resolved (5) Gas gangrene Status: Resolved (6) Acute osteomyelitis of left ankle Status: Resolved (7) Acute osteomyelitis of left calcaneus Status: Resolved (8) Diabetic ulcer of left great t
--- NOTE | 2021-01-30 09:20 | HMH.ORTHPN ---
Subjective Date: 01/30/21 Time: 08:50 Principal diagnosis: Left foot infection/gangrene Interval history: Patient is a pleasant 65-year-old female who underwent an uneventful left BKA on 01/25/2021. Today she is postop day #5. This morning she is lying comfortably in bed and is in good spirits. She reports that her residual limb pain is well controlled with pain medication. She states that she is eating and drinking well and denies nausea or vomiting. She states that her diarrhea has improved. She denies shortness of breath, chest pain, palpitations, or any other symptoms/concerns at this time. PN: Obj Ex Vital signs: Temp Pulse Resp BP Pulse Ox 98.5 F 73 16 156/61 H 94 L 01/30/21 04:00 01/30/21 04:00 01/30/21 04:00 01/30/21 04:00 01/30/21 04:00 - Constitutional no acute distress, obese, cooperative - Routine HEENT Exam Head: Present: normocephalic, atraumatic Eye: Present: EOMI, PERRL ENT: Present: mucous membranes moist - Routine Neck Exam Present: supple, full ROM, trachea midline. Absent: JVD, lymphadenopathy - Routine Respiratory Exam Absent: accessory muscle use, respiratory distress Comments: Symmetric chest movement, able to speak in complete sentences - Routine Cardiovascular Exam Present: RRR. Absent: JVD Comments: Normal peripheral pulses - Routine Abdominal Exam Present: soft. Absent: tenderness - Routine Extremities Exam Comments: Upon examination of the left residual limb: The surgical dressings over the left limb are clean, dry, and intact. No evidence of drainage or bleeding noted. There is a sugar tong splint in place. - Routine Skin Exam Present: intact, normal turgor. Absent: erythema, jaundice, gangrene - Routine Neurological Exam Present: alert, oriented X3, moving all extremities, normal tone - Routine Psychiatric Exam Present: normal affect, cooperative - Urinary Catheter Management Gleason Cath placed during this visit: no Urethral indwelling: No Progress Note: A&P (1) Lung cancer Status: Chronic (2) Gangrene of left foot Status: Resolved (3) Gangrene of toe of left foot Problem details: gangrene to left hallux, 4th and 5th toes Status: Resolved (4) Edema of left foot Status: Resolved (5) Gas gangrene Status: Resolved (6) Acute osteomyelitis of left ankle Status: Resolved (7) Acute osteomyelitis of left calcaneus Status: Resolved (8) Diabetic ulcer of left great toe Status: Acute (9) Diarrhea Status: Resolved Assessment and Plan for All Diagnoses:: I have discussed the clinical findings and progress with the patient. Overall she is doing well from an orthopedic standpoint and can be discharged when medically appropriate. Today her surgical dressings are clean, dry, and intact. Continue use of the sugar tong splint. Continue rest, elevation, ice, and as needed pain medication. We will see her in our office for her first postoperative follow up appointment in 1 week. Case management assisting with discharge planning, tentative plan is for patient to go to [facility] where she will continue her antibiotic therapy and be followed by Dr. Garcia/Dr. Fulton's service. Continue medical management per Dr. Garcia and Dr. Fulton.
[2021-01-30 09:30] LABS: Coronavirus 19, PCR Not Detected (NotDetected); Influenza A, PCR Not Detected (NotDetected); Influenza B, PCR Not Detected (NotDetected)
== END 2021-01-30 11:35 | disposition hospice, home (50) | DRG 239 ==
LOC: ER 23:26 → 2ND 23:49
PROVIDERS: Internal Medicine Adolescent Medicine; Orthopaedic Surgery; Admitting Provider Internal Medicine Adolescent Medicine; Emergency Provider Emergency Medicine; Visit Provider Internal Medicine Adolescent Medicine
PROC: (CPT 27880; principal; 2021-01-25 11:00)
DX: E11.52 Type 2 diabetes mellitus with diabetic peripheral angiopathy with gangrene (principal); A41.59 Other Gram-negative sepsis; I96 Gangrene, not elsewhere classified; M86.19 Other acute osteomyelitis, multiple sites; C34.90 Malignant neoplasm of unspecified part of unspecified bronchus or lung; C79.9 Secondary malignant neoplasm of unspecified site; L97.329 Non-pressure chronic ulcer of left ankle with unspecified severity; E11.69 Type 2 diabetes mellitus with other specified complication; Z20.822 Contact with and (suspected) exposure to COVID-19; Z51.5 Encounter for palliative care; J44.9 Chronic obstructive pulmonary disease, unspecified; F17.210 Nicotine dependence, cigarettes, uncomplicated; Z66 Do not resuscitate; E11.621 Type 2 diabetes mellitus with foot ulcer; L97.529 Non-pressure chronic ulcer of other part of left foot with unspecified severity; E11.622 Type 2 diabetes mellitus with other skin ulcer; R19.7 Diarrhea, unspecified
CPT/HCPCS: 27880; 36415; 71045; 72170; 73590; 73600; 73620; 80048; 80053; 80202; 81001; 82962; 83605; 83735; 84145; 85007; 85014; 85018; 85025; 85651; 86140; 86850; 87040; 87070; 87075; 87077; 87186; 87205; 87506; 88307; 88311; 96365; 97110; 97162; 97166; 97530; 99284; C1713; C9803; J2405; J2704; J3370; P9016; U0003; U0005